=== PATIENT | female | born 1990 | race Hispanic/Latino ===

== ENCOUNTER 2019-04-11 00:03 | Inpatient (IN) | payer SELFPAY ==
[2019-04-11] MEDS ORDERED: NA CHLORIDE 0.9% 1,000 ML ONE (01:01)
[2019-04-11] MEDS ORDERED: LORazepam 2 MG/ML VIAL ONE ×3 (01:04→01:21)
[2019-04-11] MEDS ORDERED: NA CHLORIDE 0.9% 2,000 ML ONE (01:21)
[2019-04-11] MEDS ORDERED: NS KCL 20MEQ 1,000 ML IV ONE (02:09)
[2019-04-11] MEDS ORDERED: MIDAZOLAM HCL 2 MG/2 ML INJ ONE ×2 (02:31→02:50)
[2019-04-11] MEDS ORDERED: NA CHLORIDE 0.9% 500 ML ONE (02:50)
--- NOTE | 2019-04-11 03:47 | ER ---
Nurse's Notes [facility] Name: Ernestina Messina Age: 28 yrs Sex: Female : 1990 Arrival Date: 04/11/2019 Time: 00:10 Bed 3 Private MD: Diagnosis: Altered mental status, unspecified;Overdose on Flexeril Presentation: 04/11 00:23 Presenting complaint: Patient states: her friend dared her to take some pills - small ak1 orange pills. unknown amount, unknown pills at 2200. pt denies drug use, pt denies ETOH. Transition of care: patient was not received from another setting of care. Onset of symptoms was April 11, 2019. Risk Assessment: Do you want to hurt yourself or someone else? Patient reports no desire to harm self or others. Initial Sepsis Screen: Does the patient meet any 2 criteria? No. Patient's initial sepsis screen is negative. Does the patient have a suspected source of infection? No. Patient's initial sepsis screen is negative. Care prior to arrival: None. 00:23 Method Of Arrival: Ambulatory ak1 00:23 Acuity: VINI 2 ak1 CONVOLUTE TUBE WINDER: 00:22 LMP 03/28/2019 ak1 Historical: - Allergies: 00:24 No Known Allergies; ak1 - Home Meds: 00:24 None [Active]; ak1 - PMHx: 00:24 None; ak1 - PSHx: 00:24 None; ak1 - Immunization history:: Adult Immunizations up to date. - Social history:: Smoking status: Patient/guardian denies using tobacco. - Ebola Screening: : No symptoms or risks identified at this time. Screenin:37 Abuse screen: Denies threats or abuse. Nutritional screening: No deficits noted. tl2 Tuberculosis screening: No symptoms or risk factors identified. Fall Risk IV access (20 points). Mental Status- Overestimates/Forgets Limitations (15 pts.). Assessment: 00:30 General: Appears distressed, uncomfortable, Behavior is anxious, drowsy, restless. tl2 Pain: Denies pain. Neuro: Level of Consciousness is awake, listless, Oriented to person, place, time, situation, Speech is slurred. Cardiovascular: Denies chest pain. Respiratory: Airway is patent Respiratory effort is even, unlabored, Respiratory pattern is regular, symmetrical. GI: No signs and/or symptoms were reported involving the gastrointestinal system. : No signs and/or symptoms were reported regarding the genitourinary system. Derm: Skin is pale. 00:45 Reassessment: pt has become increasingly more altered and agitated. PA at bedside, see tl2 MAR for medication administration. General: Appears distressed, Behavior is agitated, combative. Neuro: Level of Consciousness is confused, lethargic, Oriented to person, Speech is slurred. 01:48 Reassessment: Spoke with Darron Vanegas at [place] [facility]. if QT interval tl2 is prolonged, recommend 1-2 grams of mag sulfate. Symptomatic and supportive care watch for QT intervals, risk for torsades. 02:10 Reassessment: PT continues to be agitated, PA at bedside, new orders see MAR. tl2 02:30 Reassessment: Pt rests for short amount of time, then becomes agitated with tachycardia.tl2 04:00 Reassessment: Pt resting quietly, VSS stable with short periods of tachycardia. tl2 05:07 Reassessment: PT stable for transport to ICU. tl2 Overdose: 00:40 Patient took unknown amount of Flexeril. Overdose occurred 2-3 hours ago. tl2 01:30 Kenyon cath inserted, using sterile technique, 16 Fr., by az, balloon inflated, to tl2 gravity drainage, urine specimen collected. returned clear yellow urine. Vital Signs: 00:22 BP 142 / 70; Pulse 139; Resp 16; Temp 98; Pulse Ox 98% on R/A; Weight 61.69 kg (R); ak1 Height 5 ft. 2 in. (157.48 cm) (R); Pain 0/10; 01:37 BP 110 / 70; Pulse 106; Resp 21; Pulse Ox 100% on 2 lpm NC; tl2 01:58 BP 119 / 75; Pulse 111; Resp 21; Pulse Ox 98% on 2 lpm NC; tl2 02:43 BP 94 / 66; Pulse 146; Resp 30; Pulse Ox 100% on 2 lpm NC; tl2 02:51 BP 103 / 75; Pulse 113; Resp 21; Pulse Ox 99% on 2 lpm NC; tl2 03:58 BP 101 / 68; Pulse 122; Resp 20; Pulse Ox 100% on 2 lpm NC; tl2 00:22 Body Mass Index 24.87 (61.69 kg, 157.48 cm) ak1 ED Course: 00:10 Patient arrived in ED. ds1 00:22 Ortega Palencia PA is PHCP. jr8 00:22 Kalyan Carranza MD is Attending Physician. jr8 00:22 Arm band placed on Patient placed in an exam room, on a stretcher, Patient notified of ak1 wait time. 00:24 Triage completed. ak1 00:39 Jennifer Anna RN is Primary Nurse. tl2 00:45 Inserted saline lock: 20 gauge in left antecubital area, using aseptic technique. Blood tl2 collected. 01:20 Kenyon cath inserted, using sterile technique, 16 Fr., by az, balloon inflated, to tl2 gravity drainage, urine specimen collected. returned clear yellow urine. 01:37 Patient has correct armband on for positive identification. Placed in gown. Bed in low tl2 position. Call light in reach. Side rails up X2. sitter at bedside. 02:38 Dae Bird MD is Hospitalizing Provider. jr8 05:10 No provider procedures requiring assistance completed. Patient admitted, IV remains in tl2 place. Restraints: 02:00 Violent/Self Destructive Restraint: Order: obtained. Initiated April 11, 2019 at 02:00 tl2 Staff present during the Initiation of Restraint: DICK Juares, Jennifer Anna, BUFFY, and Mark, tech. Observed actions/behavior: destructive, confusion/disorientation, difficulty remembering or follow instructions, impaired decision making, repeated attempts to get up from bed/chair without assistance. unable to follow instructions, rptd attempts to remove/tamper lines/tubes/IV/med devices \T\ wnd dressing, Less restrictive alternatives attempted: placed near Nurse station, trained sitter in room, Clinical justification for use: Violent/self destructing behavior impacts therapeutic environment. Poses a serious danger to physical safety of self \T\ others. 02:15 Violent/Self Destructive Restraint: Monitoring: Mental status: agitated/restless, tl2 confused. Cognition: unable to follow commands, Circulation: Within defined parameters (based on Cardiovascular assessment). Skin integrity: Within defined parameters (based on Integumentary assessment). 02:15 Violent/Self Destructive Restraint: Restraint status: Soft wrist restraint (Right) tl2 Continued. Soft wrist restraint (Left) Continued. Soft ankle restraint (Right) Continued. Soft ankle restraint (Left) Continued. 02:30 Violent/Self Destructive Restraint: Monitoring: Mental status: agitated/restless, tl2 confused. Cognition: unable to follow commands, Circulation: Within defined parameters (based on Cardiovascular assessment). Skin integrity: Within defined parameters (based on Integumentary assessment). 02:30 Violent/Self Destructive Restraint: Restraint status: Soft wrist restraint (Right) tl2 Continued. Soft wrist restraint (Left) Continued. Soft ankle restraint (Right) Continued. Soft ankle restraint (Left) Continued. 02:45 Violent/Self Destructive Restraint: Monitoring: Mental status: agitated/restless, tl2 confused. Cognition: unable to follow commands, Circulation: Within defined parameters (based on Cardiovascular assessment). Skin integrity: Within defined parameters (based on Integumentary assessment). 02:45 Violent/Self Destructive Restraint: Restraint status: Soft wrist restraint (Right) tl2 Continued. Soft wrist restraint (Left) Continued. Soft ankle restraint (Right) Continued. Soft ankle restraint (Left) Continued. 02:59 Violent/Self Destructive Restraint: Monitoring: Mental status: agitated/restless, tl2 confused. Cognition: unable to follow commands, Circulation: Within defined parameters (based on Cardiovascular assessment). Skin integrity: Within defined parameters (based on Integumentary assessment) No injuries due to Restraints noted. Range of Motion: patient asleep. Hydration/Food: patient asleep. Elimination/Hygiene: with urinary catheter. 03:00 Violent/Self Destructive Restraint: Restraint status: Soft wrist restraint (Right) tl2 Continued. Soft wrist restraint (Left) Continued. Soft ankle restraint (Right) Continued. Soft ankle restraint (Left) Continued. 03:02 Violent/Self Destructive Restraint: Face to Face Evaluatn: Continue Restraint. tl2 Notified of Evaluation result: Ortega JENNINGS. 03:15 Violent/Self Destructive Restraint: Monitoring: Mental status: agitated/restless, tl2 confused. Cognition: unable to follow commands, Circulation: Within defined parameters (based on Cardiovascular assessment). Skin integrity: Within defined parameters (based on Integumentary assessment) No injuries due to Restraints noted. 03:15 Violent/Self Destructive Restraint: Restraint status: Soft wrist restraint (Right) tl2 Continued. Soft wrist restraint (Left) Continued. Soft ankle restraint (Right) Continued. Soft ankle restraint (Left) Continued. 03:30 Violent/Self Destructive Restraint: Monitoring: Mental status: agitated/restless, tl2 confused. Cognition: unable to follow commands, Circulation: Within defined parameters (based on Cardiovascular assessment). Skin integrity: Within defined parameters (based on Integumentary assessment) No injuries due to Restraints noted. 03:30 Violent/Self Destructive Restraint: Restraint status: Soft wrist restraint (Right) tl2 Continued. Soft wrist restraint (Left) Continued. Soft ankle restraint (Right) Continued. Soft ankle restraint (Left) Continued. 03:45 Violent/Self Destructive Restraint: Monitoring: Mental status: agitated/restless, tl2 confused. Cognition: unable to follow commands, Circulation: Within defined parameters (based on Cardiovascular assessment). Skin integrity: Within defined parameters (based on Integumentary assessment) No injuries due to Restraints noted. 03:45 Violent/Self Destructive Restraint: Restraint status: Soft wrist restraint (Right) tl2 Continued. Soft wrist restraint (Left) Continued. Soft ankle restraint (Right) Continued. Soft ankle restraint (Left) Continued. 04:01 Violent/Self Destructive Restraint: Monitoring: Mental status: agitated/restless, tl2 confused. Cognition: unable to follow commands, Circulation: Within defined parameters (based on Cardiovascular assessment). Skin integrity: Within defined parameters (based on Integumentary assessment) No injuries due to Restraints noted. Range of Motion: patient asleep. Hydration/Food: patient asleep. Elimination/Hygiene: with urinary catheter, Restraint status: Soft wrist restraint (Right) Continued. Soft wrist restraint (Left) Continued. Soft ankle restraint (Right) Continued. Soft ankle restraint (Left) Continued. 04:15 Violent/Self Destructive Restraint: Monitoring: Mental status: agitated/restless, tl2 confused. Cognition: unable to follow commands, Circulation: Within defined parameters (based on Cardiovascular assessment). Skin integrity: Within defined parameters (based on Integumentary assessment) No injuries due to Restraints noted. Restraint status: Soft wrist restraint (Right) Continued. Soft wrist restraint (Left) Continued. Soft ankle restraint (Right) Continued. Soft ankle restraint (Left) Continued. 04:30 Violent/Self Destructive Restraint: Monitoring: Mental status: patient asleep, tl2 Cognition: unable to follow commands, Circulation: Within defined parameters (based on Cardiovascular assessment). Skin integrity: Within defined parameters (based on Integumentary assessment) No injuries due to Restraints noted. Restraint status: Soft wrist restraint (Right) Discontinued. Soft wrist restraint (Left) Discontinued. Soft ankle restraint (Right) Discontinued. Soft ankle restraint (Left) Discontinued. Readiness for Discontinue: Release criteria met. No longer exhibiting violent or self destructive behavior. Alt interventions effective. Restraint discontinuation: Discontinued at April 11, 2019 at 04:30 Effective alternative interventions: Restraints not ordered for admission. Administered Medications: 00:39 Drug: NS 0.9% 1000 ml Route: IV; Rate: 1000 ml; Site: left antecubital; tl2 01:56 Follow up: IV Status: Completed infusion; IV Intake: 1000ml bb 00:52 Drug: Ativan 1 mg Route: IVP; Site: left antecubital; tl2 01:00 Follow up: Response: No adverse reaction; No change in condition tl2 00:54 CANCELLED (Physician Discretion): Sodium Bicarbonate 0.5 amp IVP once; (50 mL); equals jr8 50 mEq 00:54 CANCELLED (Physician Discretion): Ativan 1 mg IVP once jr8 01:00 Drug: Ativan 1 mg Route: IVP; Site: left antecubital; tl2 01:05 Follow up: Response: No adverse reaction; Anxiety unchanged tl2 01:02 Drug: Sodium Bicarbonate 0.5 amp Route: IVP; Site: left antecubital; tl2 02:00 Follow up: Response: No adverse reaction tl2 01:10 Drug: Ativan 2 mg Route: IVP; Site: left antecubital; tl2 01:15 Follow up: Response: No adverse reaction; Anxiety unchanged tl2 01:15 Drug: Ativan 2 mg Route: IVP; Site: left antecubital; tl2 01:30 Follow up: Response: No adverse reaction; Anxiety decreased tl2 01:15 Drug: NS 0.9% 1000 ml Route: IV; Rate: 1 bolus; Site: left antecubital; tl2 01:56 Follow up: IV Status: Completed infusion; IV Intake: 1000ml bb 02:00 Follow up: IV Status: Completed infusion; IV Intake: 1000ml tl2 01:56 Drug: NS 0.9% with KCl 20 mEq/L 1000 ml Route: IV; Rate: 500 ml/hr; Site: left bb antecubital; 04:00 Follow up: IV Status: Completed infusion; IV Intake: 1000ml tl2 02:20 Drug: Versed 2 mg Route: IVP; Site: left antecubital; tl2 02:50 Follow up: Response: No adverse reaction; Anxiety unchanged tl2 02:41 Drug: NS 0.9% 500 ml Route: IV; Rate: bolus; Site: left antecubital; tl2 03:30 Follow up: IV Status: Completed infusion; IV Intake: 500ml tl2 02:51 Drug: Versed 2 mg Route: IVP; Site: left antecubital; tl2 03:30 Follow up: Response: No adverse reaction; Anxiety decreased tl2 Intake: 01:56 IV: 1000ml; Total: 1000ml. bb 01:56 IV: 1000ml; Total: 2000ml. bb 02:00 IV: 1000ml; Total: 3000ml. tl2 03:30 IV: 500ml; Total: 3500ml. tl2 04:00 IV: 1000ml; Total: 4500ml. tl2 Outcome: 02:39 Decision to Hospitalize by Provider. jr8 05:10 Admitted to ICU accompanied by nurse, accompanied by tech, via stretcher, room 7, with tl2 oxygen, on monitor, with chart, Report called to BUFFY Irwin 05:10 Condition: stable 05:10 Discharge instructions given to patient. 05:14 Patient left the ED. tl2 Signatures: Amy Cullen1 Tami Mejia RN RN bb Ortega Palencia PA PA jr8 Nubia Melo RN RN ak1 Jennifer Anna RN RN tl2 Corrections: (The following items were deleted from the chart) 01:51 01:48 Reassessment: if QT interval is prolonged, recommend 1-2 grams of mag sulfate. tl2 Symptomatic and supportive care watch for QT intervals, risk for torsades. tl2
--- NOTE | 2019-04-11 03:47 | EDPHYS ---
Physician Documentation [facility] Name: Ernestina Messina Age: 28 yrs Sex: Female : 1990 Arrival Date: 04/11/2019 Time: 00:10 Bed 3 Private MD: ED Physician Kalyan Carranza HPI: 04/11 00:39 This 28 yrs old Female presents to ER via Ambulatory with complaints of jr8 Overdose. 00:39 The patient presents to the emergency department after a known overdose, that was jr8 intentional. Context: Method: the patient has a confirmed or suspected ingestion, Flexeril , Time: 3 hour(s) ago, Extent: Associated signs and symptoms: Pertinent positives: decreased level of consciousness. Severity of symptoms: At their worst the symptoms were moderate in the emergency department the symptoms are unchanged. The patient has not experienced similar symptoms in the past. The patient has not recently seen a physician. Patient stated that she was dared to take a bunch of her medicine because she was having trouble sleeping. Stated that her friend was calling her a "pussy". Ended up taking a hand full of her muscle relaxant which was found to be Flexeril after she described and identified pill. Patient tachycardic and sleepy upon arrival . 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 - Social history:: Smoking status: Patient/guardian denies using tobacco. - Ebola Screening: : No symptoms or risks identified at this time. ROS: 00:39 Eyes: Negative for injury, pain, redness, and discharge, ENT: Negative for injury, jr8 pain, and discharge, Neck: Negative for injury, pain, and swelling, Cardiovascular: Negative for chest pain, palpitations, and edema, Respiratory: Negative for shortness of breath, cough, wheezing, and pleuritic chest pain, Abdomen/GI: Negative for abdominal pain, nausea, vomiting, diarrhea, and constipation, Back: Negative for injury and pain, MS/Extremity: Negative for injury and deformity, Skin: Negative for injury, rash, and discoloration, Neuro: Negative for headache, weakness, numbness, tingling, and seizure. 00:39 Constitutional: Positive for malaise. Exam: 00:39 Eyes: Pupils equal round and reactive to light, extra-ocular motions intact. Lids and jr8 lashes normal. Conjunctiva and sclera are non-icteric and not injected. Cornea within normal limits. Periorbital areas with no swelling, redness, or edema. ENT: Nares patent. No nasal discharge, no septal abnormalities noted. Tympanic membranes are normal and external auditory canals are clear. Oropharynx with no redness, swelling, or masses, exudates, or evidence of obstruction, uvula midline. Mucous membranes moist. Neck: Trachea midline, no thyromegaly or masses palpated, and no cervical lymphadenopathy. Supple, full range of motion without nuchal rigidity, or vertebral point tenderness. No Meningismus. Respiratory: Lungs have equal breath sounds bilaterally, clear to auscultation and percussion. No rales, rhonchi or wheezes noted. No increased work of breathing, no retractions or nasal flaring. Abdomen/GI: Soft, non-tender, with normal bowel sounds. No distension or tympany. No guarding or rebound. No evidence of tenderness throughout. Back: No spinal tenderness. No costovertebral tenderness. Full range of motion. Skin: Warm, dry with normal turgor. Normal color with no rashes, no lesions, and no evidence of cellulitis. MS/ Extremity: Pulses equal, no cyanosis. Neurovascular intact. Full, normal range of motion. Neuro: Awake and alert, GCS 15, oriented to person, place, time, and situation. Cranial nerves II-XII grossly intact. Motor strength 5/5 in all extremities. Sensory grossly intact. Cerebellar exam normal. Normal gait. 00:39 Constitutional: The patient appears alert, awake, non-toxic, sleepy in appearance 00:39 Cardiovascular: Rate: tachycardic, Rhythm: regular, Pulses: Pulses are 2+ in right radial artery and left radial artery. Heart sounds: normal, normal S1and S2, no S3 or S4, no murmur, no rub, no gallop, Edema: is not appreciated, JVD: is not appreciated. Vital Signs: 00:22 BP 142 / 70; Pulse 139; Resp 16; Temp 98; Pulse Ox 98% on R/A; Weight 61.69 kg (R); ak1 Height 5 ft. 2 in. (157.48 cm) (R); Pain 0/10; 01:37 BP 110 / 70; Pulse 106; Resp 21; Pulse Ox 100% on 2 lpm NC; tl2 01:58 BP 119 / 75; Pulse 111; Resp 21; Pulse Ox 98% on 2 lpm NC; tl2 02:43 BP 94 / 66; Pulse 146; Resp 30; Pulse Ox 100% on 2 lpm NC; tl2 02:51 BP 103 / 75; Pulse 113; Resp 21; Pulse Ox 99% on 2 lpm NC; tl2 03:58 BP 101 / 68; Pulse 122; Resp 20; Pulse Ox 100% on 2 lpm NC; tl2 00:22 Body Mass Index 24.87 (61.69 kg, 157.48 cm) ak1 MDM: 00:34 Patient medically screened. jr8 01:21 ED course: Patient had runs of SVT. Bicarb given as antiarrhythmic as this is treated jr8 potentially as TCA overdose due to type of medicine. Patient has also become acute confused and has required multiple rounds of ativan . 02:37 Data reviewed: vital signs, nurses notes, lab test result(s), EKG. Data interpreted: jr8 Pulse oximetry: on room air is 98 %. Interpretation: normal. Counseling: I had a detailed discussion with the patient and/or guardian regarding: the historical points, exam findings, and any diagnostic results supporting the discharge/admit diagnosis, lab results, the need for further work-up and treatment in the hospital. Physician consultation: Dae Bird MD was called at 02:37, was contacted at 02:37, regarding admission, to the ICU, and will see patient in ED. 04/11 00:34 Order name: Acetaminophen 04/11:34 Order name: Basic Metabolic Panel 04/11: Order name: CBC with Diff 04/11: Order name: ETOH Level 04/11:34 Order name: Hepatic Function 04/11:34 Order name: PT-INR 04/11:34 Order name: Ptt, Activated 04/11: Order name: Salicylate jr8 07/10 00:34 Order name: Urine Drug Screen 04/11 00:39 Order name: Magnesium 04/11 01:40 Order name: Urine Dipstick--Ancillary (enter results) 04/11 01:40 Order name: Urine --Ancillary (enter results) 04/11 03:37 Order name: Acetaminophen Level EDPR 04/11 03:37 Order name: Basic Metabolic Panel [facility] 04/11 00:34 Order name: EKG; Complete Time: 03:38 04/11 00:34 Order name: EKG - Nurse/Tech; Complete Time: 00:39 04/11 00:34 Order name: IV Saline Lock; Complete Time: 00:39 04/11 00:34 Order name: Labs collected and sent; Complete Time: 00:39 04/11 00:34 Order name: Urine Dipstick-Ancillary (obtain specimen); Complete Time: 01:36 04/11 00:34 Order name: Urine Test (obtain specimen); Complete Time: 01:36 [facility] 04/11 01:36 Order name: [place]; Complete Time: 01:36 2 04/11 02:52 Order name: Restraint:Violent/Self Destructive (Adult:18yo or >); Complete Time: 02:52 tl2 Administered Medications: 00:39 Drug: NS 0.9% 1000 ml Route: IV; Rate: 1000 ml; Site: left antecubital; tl2 01:56 Follow up: IV Status: Completed infusion; IV Intake: 1000ml bb 00:52 Drug: Ativan 1 mg Route: IVP; Site: left antecubital; tl2 01:00 Follow up: Response: No adverse reaction; No change in condition tl2 00:54 CANCELLED (Physician Discretion): Sodium Bicarbonate 0.5 amp IVP once; (50 mL); equals jr8 50 mEq 00:54 CANCELLED (Physician Discretion): Ativan 1 mg IVP once 01:00 Drug: Ativan 1 mg Route: IVP; Site: left antecubital; tl2 01:05 Follow up: Response: No adverse reaction; Anxiety unchanged tl2 01:02 Drug: Sodium Bicarbonate 0.5 amp Route: IVP; Site: left antecubital; tl2 02:00 Follow up: Response: No adverse reaction tl2 01:10 Drug: Ativan 2 mg Route: IVP; Site: left antecubital; tl2 01:15 Follow up: Response: No adverse reaction; Anxiety unchanged tl2 01:15 Drug: Ativan 2 mg Route: IVP; Site: left antecubital; tl2 01:30 Follow up: Response: No adverse reaction; Anxiety decreased tl2 01:15 Drug: NS 0.9% 1000 ml Route: IV; Rate: 1 bolus; Site: left antecubital; tl2 01:56 Follow up: IV Status: Completed infusion; IV Intake: 1000ml bb 02:00 Follow up: IV Status: Completed infusion; IV Intake: 1000ml tl2 01:56 Drug: NS 0.9% with KCl 20 mEq/L 1000 ml Route: IV; Rate: 500 ml/hr; Site: left bb antecubital; 04:00 Follow up: IV Status: Completed infusion; IV Intake: 1000ml tl2 02:20 Drug: Versed 2 mg Route: IVP; Site: left antecubital; tl2 02:50 Follow up: Response: No adverse reaction; Anxiety unchanged tl2 02:41 Drug: NS 0.9% 500 ml Route: IV; Rate: bolus; Site: left antecubital; tl2 03:30 Follow up: IV Status: Completed infusion; IV Intake: 500ml tl2 02:51 Drug: Versed 2 mg Route: IVP; Site: left antecubital; tl2 03:30 Follow up: Response: No adverse reaction; Anxiety decreased tl2 Disposition: 06:31 Co-signature as Attending Physician, Kalyan Carranza MD. rn Disposition: 04/11/19 02:39 Hospitalization ordered by Dae Bird for Observation. Preliminary diagnosis are Altered mental status, unspecified, Overdose on Flexeril . - Bed requested for Intensive Care Unit. - Status is Observation. tl2 - Condition is Fair. - Problem is new. - Symptoms are unchanged. UTI on Admission? No Signatures: Dispatcher [employer] Carleen Underwood RN Tami Hayes RN RN bb Nieto, Roman, MD MD rn Roszak, Josh, PA PA jr8 Nubia Melo RN RN ak1 Jennifer Anna RN RN tl2 Corrections: (The following items were deleted from the chart) 00:54 00:53 Sodium Bicarbonate 0.5 amp IVP once; (50 mL); equals 50 mEq ordered. tl2 jr8 00:54 00:53 Ativan 1 mg IVP once ordered. tl2 jr8 02:45 02:39 Hospitalization Ordered by Dae Bird MD for Observation. Preliminary dw diagnosis is Altered mental status, unspecified; Overdose on Flexeril . Bed requested for Telemetry/MedSurg (observation). Status is Observation. Condition is Fair. Problem is new. Symptoms are unchanged. UTI on Admission? No. jr8 05:14 02:45 04/11/2019 02:39 Hospitalization Ordered by Dae Bird MD for Observation. tl2 Preliminary diagnosis is Altered mental status, unspecified; Overdose on Flexeril . Bed requested for Intensive Care Unit. Status is Observation. Condition is Fair. Problem is new. Symptoms are unchanged. UTI on Admission? No. dw
[2019-04-11 04:13] LABS: Urine Blood TRACE (NEG); Urine Glucose NEGATIVE (NEG); Urine Protein NEGATIVE (NEG)
[2019-04-11 04:31] LABS: Absolute Lymphocytes (CBC) 2.1 K/uL (0.7-4.9); Basophils % 0.5 % (0-1.3); Eosinophils % 0.2 % (0-4.4); Lymphocytes % 27.7 % (15.3-44.8); Monocytes % 7.3 % (3.3-12.3); RBC Red Blood Cell Count 4.66 M/uL (3.86-4.86)
[2019-04-11 04:32] LABS: Protime INR 1.12
[2019-04-11 04:33] LABS: Barbiturates NEGATIVE (NEGATIVE); Benzodiazepines NEGATIVE (NEGATIVE); Cocaine NEGATIVE (NEGATIVE); METHAMPHETAM NEGATIVE (NEGATIVE); Methadone NEGATIVE (NEGATIVE); Opiates NEGATIVE (NEGATIVE); Phencyclidine NEGATIVE (NEGATIVE); THC Cannibis NEGATIVE (NEGATIVE)
[2019-04-11 04:34] LABS: ALT/SGPT 28 U/L (12-78); AST/SGOT 17 U/L (15-37); Alkaline Phosphatase 66 U/L (45-117); Bilirubin Total 0.6 mg/dL (0.2-1.0); Protein, Total 7.5 g/dL (6.4-8.2)
[2019-04-11] MEDS ORDERED: ONDANSETRON 4 MG/2 ML VIAL IV PRN (04:36)
--- NOTE | 2019-04-11 04:36 | P.HP ---
Certification for Inpatient Patient admitted to: Inpatient With expected LOS: >2 Midnights Practitioner: I am a practitioner with admitting privileges, knowledge of patient current condition, hospital course, and medical plan of care. Services: Services provided to patient in accordance with Admission requirements found in Title 42 Section 412.3 of the Code of Federal Regulations Patient History Date of Service: 04/11/19 Reason for admission: drug overdose History of Present Illness: Ms Messina is a 28 years old woman with who was brought by her friend after take and handful of an "orange" pill that she got prescribed for muscle pain. She states that was not suicidal. At arrival, she was alert and able to follow commands. However, during her stay in ER, gradually she become tachycardic and agitated. She was treated with lorazepam and verced. At my encounter, the patient was sedated, unable to provide any history. Allergies No Known Allergies Allergy (Unverified 04/11/19 03:56) Home medications list reviewed: Yes - Past Medical/Surgical History Past Medical History: Reviewed- Non-Contributory Past Surgical History: Reviewed- Non-Contributory - Family History Family History: Reviewed- Non-Contributory - Social History Place of Residence: Home Review of Systems is unable to be obtained Physical Examination - Physical Exam General: Mild distress, Unresponsive HEENT: Atraumatic, PERRLA, Other (dry mucous membr.), Sclerae nonicteric Neck: Supple, 2+ carotid pulse no bruit, No LAD, Without JVD or thyroid abnormality Respiratory: Clear to auscultation bilaterally, Normal air movement Cardiovascular: Regular rate/rhythm, Normal S1 S2 Gastrointestinal: Normal bowel sounds, No tenderness Musculoskeletal: No tenderness Integumentary: No rashes Neurological: Normal strength at 5/5 x4 extr, Normal tone, Sensation intact Lymphatics: No axilla or inguinal lymphadenopathy Assessment and Plan - Problems (Diagnosis) (1) Drug overdose Current Visit: Yes Status: Acute Qualifiers: Encounter type: initial encounter Injury intent: intentional self-harm Qualified Code(s): T50.902A - Poisoning by unspecified drugs, medicaments and biological substances, intentional self-harm, initial encounter - Plan Will admit the patient to ICU for close monitoring. Lab work is still pending, since system was down and just came back to normal. She will need mental health evaluation when she is clinically stable, eventually will need long term as well. - Advance Directives Does patient have a Living Will: No Does patient have a Durable POA for Healthcare: No - Code Status/Comfort Care Code Status Assessed: Yes Code Status: Full Code
[2019-04-11 04:38] LABS: Albumin 4.1 g/dL (3.4-5.0); BUN Blood Urea Nitrogen 7 mg/dL (7-18); Bicarbonate 25 mmol/L (21-32); Bilirubin Direct 0.2 mg/dL (0-0.2); Glucose Level 91 mg/dL (74-106); Potassium 3.1 mmol/L (3.5-5.1); Sodium Level 141 mmol/L (136-145)
[2019-04-11] MEDS ORDERED: NA CHLORIDE 0.9% 1,000 ML IV SCH (05:00)
[2019-04-11] MEDS ORDERED: NS KCL 20MEQ 20 MEQ/1,000 ML BAG IV SCH (08:00)
--- NOTE | 2019-04-11 09:54 | EKG ---
Test Date: 2019-04-11 Test Time: 08:27:46 Director Of Land Acquisition: FRANCISCA MEASUREMENT RESULTS: Intervals: Rate: 93 VA: 146 QRSD: 76 QT: 346 QTc: 430 [place]: P: 80 VA: 146 QRS: 74 T: 43 INTERPRETIVE STATEMENTS: Normal sinus rhythm Normal ECG Compared to ECG 04/11/2019 00:46:34 Sinus tachycardia no longer present ST (T wave) deviation no longer present Possible ischemia no longer present Electronically Signed On 04-11-19 09:52:59 CDT by Willy Flores
--- NOTE | 2019-04-11 09:55 | EKG ---
Test Date: 2019-04-11 Test Time: 00:46:34 Epic Analyst: KASHMIR MEASUREMENT RESULTS: Intervals: Rate: 137 CA: 130 QRSD: 74 QT: 274 QTc: 413 [place]: P: 65 CA: 130 QRS: 56 T: 2 INTERPRETIVE STATEMENTS: Sinus tachycardia Low voltage QRS ST & T wave abnormality, consider inferolateral ischemia Abnormal ECG Compared to ECG 04/02/2013 03:45:23 Low QRS voltage now present ST (T wave) deviation now present Possible ischemia now present Sinus rhythm no longer present Electronically Signed On 04-11-19 09:54:25 CDT by Willy Flores
--- NOTE | 2019-04-11 13:54 | P.PN ---
Subjective Date of Service: 04/11/19 Primary Care Provider: None Chief Complaint: drug overdose Subjective: Other (I was able to discuss with the patient the events that led her to be hospitalized. Initially there was some mixed stories from the patient and her significant other/common-law all . Initially the patient said that she intentionally took multiple pills of Flexeril on a dare with her friends playing a game. She described the gain with dice. On the dices there was a symbol of . The significant other reported that there were no friends that came over and she was not playing a game. He reported that they had a disagreement. She then wrote on a piece the paper eluting to that she wanted to commit suicide. After further discussion with house significant other present, she admitted that she took the pills as a suicide attempt.) Physical Examination - Vital Signs Temperature: 97 F Blood Pressure: 114/87 Pulse: 104 Respirations: 18 Pulse Ox (%): 99 - Physical Exam General: Alert, In no apparent distress, Oriented x3, Cooperative, Other ( Patient appears depressed) HEENT: Atraumatic Neck: Supple Respiratory: Clear to auscultation bilaterally, Normal air movement Cardiovascular: Normal pulses, Regular rate/rhythm Gastrointestinal: Normal bowel sounds, Soft and benign, Non-distended, No masses , No rebound, No guarding Musculoskeletal: No erythema, No tenderness, No warmth Integumentary: No tenderness/swelling, No erythema, No warmth, No cyanosis Neurological: Normal speech, Normal strength at 5/5 x4 extr, Normal tone, Normal affect - Studies Laboratory Data (last 24 hrs) 04/11/19 00:35: PT 13.2 H, INR 1.12, APTT 32.5 04/11/19 00:35: WBC 7.7, Hgb 12.9, Hct 38.0, Plt Count 255 04/11/19 00:35: Sodium 141, Potassium 3.1 L, BUN 7, Creatinine 0.60, Glucose 91 , Magnesium 2.0, Total Bilirubin 0.6, AST 17, ALT 28, Alkaline Phosphatase 66 Medications List Reviewed: Yes Assessment & Plan Discharge Plan: Psychiatry Plan to discharge in: 24 Hours Physician Review Additional Text: Impression: Suicide Attempt with Flexeril Overdose with suspected underlying Depression Plan: I was able to discuss with the patient the events that led her to be hospitalized. Initially there was some mixed stories from the patient and her significant other/common-law all . Initially the patient said that she intentionally took multiple pills of Flexeril on a dare with her friends playing a game. She described the gain with dice. On the dices there was a symbol of . The significant other reported that there were no friends that came over and she was not playing a game. He reported that they had a disagreement. She then wrote on a piece the paper eluting to that she wanted to commit suicide. After further discussion with significant other present, she admitted that she took the pills as a suicide attempt. Patient understands what she did was wrong. Patient willing to go to psychiatric facility to further evaluate and treat. Patient alert and oriented. Patient appears clinically stable for discharge to psychiatric facility. Will verify with poison control addressing Flexeril overdose. Will have [facility] evaluation to help with transfer to psychiatric facility. Time Spent Managing Pts Care (In Minutes): 55
[2019-04-11 15:56] LABS: BUN Blood Urea Nitrogen 3 mg/dL (7-18); Bicarbonate 26 mmol/L (21-32); Glucose Level 87 mg/dL (74-106); Sodium Level 143 mmol/L (136-145)
[2019-04-12 05:21] LABS: Absolute Lymphocytes (CBC) 1.8 K/uL (0.7-4.9); Basophils % 0.7 % (0-1.3); Eosinophils % 0.7 % (0-4.4); Hematocrit 37.2 % (36.0-45.0); Lymphocytes % 30.6 % (15.3-44.8); MPV 9.4 fL (7.6-11.3); Monocytes % 7.4 % (3.3-12.3); RBC Red Blood Cell Count 4.53 M/uL (3.86-4.86)
[2019-04-12 05:35] LABS: BUN Blood Urea Nitrogen 3 mg/dL (7-18); Bicarbonate 27 mmol/L (21-32); Glucose Level 79 mg/dL (74-106); Potassium 3.6 mmol/L (3.5-5.1); Sodium Level 142 mmol/L (136-145)
[2019-04-12] MEDS ORDERED: POTASSIUM CL SA 10 MEQ TAB PO ONE (09:00)
--- NOTE | 2019-04-12 09:52 | P.PN ---
Subjective Date of Service: 04/12/19 Primary Care Provider: None Chief Complaint: drug overdose Subjective: Improving, Doing well Physical Examination - Vital Signs Temperature: 98 F Blood Pressure: 107/71 Pulse: 105 Respirations: 18 Pulse Ox (%): 99 - Physical Exam General: Alert, In no apparent distress, Oriented x3, Cooperative HEENT: Atraumatic Neck: Supple Respiratory: Clear to auscultation bilaterally, Normal air movement Cardiovascular: Normal pulses, Regular rate/rhythm Gastrointestinal: Normal bowel sounds, Soft and benign, Non-distended, No tenderness, No masses, No rebound, No guarding Musculoskeletal: No erythema, No tenderness, No warmth Integumentary: No tenderness/swelling, No erythema, No warmth, No cyanosis Neurological: Normal speech, Normal strength at 5/5 x4 extr, Normal tone, Abnormal affect (Patient appears depressed) - Studies Medications List Reviewed: Yes Assessment & Plan Discharge Plan: Psychiatry Plan to discharge in: 24 Hours Physician Review Additional Text: Impression: Suicide Attempt with Flexeril Overdose with suspected underlying Depression Plan: Plan of care addressed with patient. Prison in place. MR evaluation done yesterday. They agree with plan of care to transfer patient to inpatient psychiatric facility to continue further evaluation and treatment. Patient still high risk for suicide attempt, therefore inpatient evaluation/treatment by psychiatry is required. Patient not happy about going to inpatient psychiatric facility but agreeable. Await acceptance for transfer. Patient medically stable at this time for transfer. Before 48 hr snf has run out , mental health officer will need to be called for reassessment for committal. Plan of care addressed with nursing. I will turn the service over to Dr. Haley tomorrow. I will go over plan of care with her. Time Spent Managing Pts Care (In Minutes): 55
[2019-04-13 05:49] LABS: BUN Blood Urea Nitrogen 5 mg/dL (7-18); Bicarbonate 28 mmol/L (21-32); Glucose Level 96 mg/dL (74-106); Potassium 3.9 mmol/L (3.5-5.1); Sodium Level 141 mmol/L (136-145)
[2019-04-13] MEDS ORDERED: POTASSIUM CL SA 10 MEQ TAB PO ONE (09:00)
--- NOTE | 2019-04-13 10:58 | P.DS ---
Admission Date: 04/11/19 Discharge Date: 04/13/19 Primary Care Provider: None Reason for Admission: drug overdose - Problems (1) Drug overdose Current Visit: Yes Status: Acute Qualifiers: Encounter type: initial encounter Injury intent: intentional self-harm Qualified Code(s): T50.902A - Poisoning by unspecified drugs, medicaments and biological substances, intentional self-harm, initial encounter Brief History of Present Illness: Ms Messina is a 28 years old woman with who was brought by her friend after take and handful of an "orange" pill that she got prescribed for muscle pain. She states that was not suicidal. At arrival, she was alert and able to follow commands. However, during her stay in ER, gradually she become tachycardic and agitated. She was treated with lorazepam and verced. At my encounter, the patient was sedated, unable to provide any history. Hospital Course: Overall during the hospital stay patient remained stable Patient was initially admitted to the hospital for drug overdose was thought to be muscle relaxers. Patient remained stable while here in the hospital poison control was called. Patient's CBC and BMP was monitored closely here in the hospital. Patient had no adverse effect. At that time patient was medically cleared. MR was called. [facility] recommended inpatient psych. Patient was awaiting bed at [facility]. Patient did not receive bed for 48 hr and does deputy was called. The PT was able to do the revaluation and took the patient to [facility] to be admitted to the hospital at that time. Patient initially in the ER was not able to be evaluated. On subsequent days did appear to be suicidal according to the [facility] notes. Vital Signs/Physical Exam: Temp Pulse Resp BP Pulse Ox 97 F 75 24 H 92/64 99 04/13/19 04:00 04/13/19 10:00 04/13/19 10:00 04/13/19 10:00 04/13/19 10:00 General: Alert, In no apparent distress HEENT: Atraumatic, PERRLA, EOMI Neck: Supple, JVD not distended Respiratory: Clear to auscultation bilaterally, Normal air movement Cardiovascular: Regular rate/rhythm, Normal S1 S2 Gastrointestinal: Normal bowel sounds, No tenderness Musculoskeletal: No tenderness Integumentary: No rashes Neurological: Normal speech, Normal tone, Normal affect Lymphatics: No axilla or inguinal lymphadenopathy Laboratory Data at Discharge: WBC 6.0 K/uL (4.3-10.9) D 04/12/19 04:54 Hgb 12.7 g/dL (12.0-15.0) 04/12/19 04:54 Hct 37.2 % (36.0-45.0) 04/12/19 04:54 Plt Count 242 K/uL (152-406) 04/12/19 04:54 PT 13.2 SECONDS (9.5-12.5) H 04/11/19 00:35 INR 1.12 04/11/19 00:35 APTT 32.5 SECONDS (24.3-36.9) 04/11/19 00:35 Sodium 141 mmol/L (136-145) 04/13/19 04:53 Potassium 3.9 mmol/L (3.5-5.1) 04/13/19 04:53 BUN 5 mg/dL (7-18) L 04/13/19 04:53 Creatinine 0.69 mg/dL (0.55-1.3) 04/13/19 04:53 Glucose 96 mg/dL (74-106) 04/13/19 04:53 Magnesium 2.0 mg/dL (1.8-2.4) 04/12/19 04:54 Total Bilirubin 0.6 mg/dL (0.2-1.0) 04/11/19 00:35 AST 17 U/L (15-37) 04/11/19 00:35 ALT 28 U/L (12-78) 04/11/19 00:35 Alkaline Phosphatase 66 U/L (45-117) 04/11/19 00:35 Home Medications: NK [No Home Meds] 04/11/19
== END 2019-04-13 16:26 | disposition left against medical advice (07) | DRG 918 ==
LOC: ER 00:03 → 3RD-ICU 04:18
PROVIDERS: ADMIT Internal Medicine; ATTEND Family Medicine
DX: T48.1X2A Poisoning by skeletal muscle relaxants [neuromuscular blocking agents], intentional self-harm, initial encounter (principal); F32.9 Major depressive disorder, single episode, unspecified
CPT/HCPCS: 36415; 51702; 80048; 80076; 80307; 80320; 80329; 81003; 81025; 83735; 85025; 85610; 85730; 93005; 94760; 96361; 96374; 96375; 99285; J2250; J7030

== ENCOUNTER 2020-02-22 18:25 | Emergency (ER) | payer SELFPAY ==
--- OUTSIDE RECORDS SUMMARY | 2020-02-22 18:26 | XMS REPORT ---
:1990 Author Organization [facility] t Address [address] [place] [address] [place] [id number] Care Team Providers Name Role Phone Unavailable Unavailable Unavailable Problems This patient has no known problems. Allergies, Adverse Reactions, Alerts This patient has no known allergies or adverse reactions. Medications This patient has no known medications. Procedures This patient has no known procedures. Results This patient has no known results.
--- NOTE | 2020-02-22 19:33 | ER ---
Nurse's Notes [facility] Name: Ernestina Messina Age: 29 yrs Sex: Female : 1990 Arrival Date: 02/22/2020 Time: 18:28 Bed 16 Private MD: Diagnosis: Cutaneous abscess of groin-labial, spontaneous drainage Presentation: 02/21 18:29 Chief complaint: Patient states: abscess to the labia majora started yesterday. It sv opened on its own. c/o "puss" and blood coming out from it and dizziness. Coronavirus screen: Proceed with normal triage. Patient denies a cough. Patient denies shortness of breath or difficulty breathing. Patient reports a measured and/or subjective temperature greater than 100.4F. Patient denies travel on a cruise ship or to a country the [facility] currently lists as an affected area. Patient denies contact with known and/or suspected case of COVID-19. Ebola Screen: No symptoms or risks identified at this time. Risk Assessment: Do you want to hurt yourself or someone else? Patient reports no desire to harm self or others. Onset of symptoms was February 21, 2020. 18:29 Method Of Arrival: Ambulatory sv 18:29 Acuity: VINI 3 sv 18:32 Initial Sepsis Screen: Does the patient meet any 2 criteria? No. Patient's initial sv sepsis screen is negative. Does the patient have a suspected source of infection? Yes: Skin breakdown/wound. Triage Assessment: 18:29 General: Appears in no apparent distress. uncomfortable, Behavior is calm, cooperative, sv appropriate for age. Pain: Complains of pain in right labia majora and left labia majora. Neuro: Level of Consciousness is awake, alert, obeys commands, Oriented to person, place, time, situation, Gait is steady. Respiratory: Respiratory effort is even, unlabored, Respiratory pattern is regular, symmetrical. Derm: Skin is normal. 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 - Social history:: Smoking status: Patient denies any tobacco usage or history of. - Family history:: not pertinent. Screenin:54 Abuse screen: Denies threats or abuse. Denies injuries from another. Nutritional ca1 screening: No deficits noted. Tuberculosis screening: No symptoms or risk factors identified. Fall Risk None identified. Assessment: 18:54 General: Appears in no apparent distress. uncomfortable, Behavior is calm, cooperative, ca1 appropriate for age. Pain: Complains of pain in groin Pain currently is 10 out of 10 on a pain scale. Pain began 2-3 days ago. Neuro: Level of Consciousness is awake, alert, obeys commands, Oriented to person, place, time, situation, Appropriate for age. Derm: Skin is intact, is healthy with good turgor, Skin is pink, warm \\T\\ dry. Abscess located on right labia minora and upper labia is dime sized, is hot to touch, is red, is raised, was lanced by patient prior to arrival. Musculoskeletal: Circulation, motion, and sensation intact. Capillary refill < 3 seconds. 19:15 Reassessment: Patient appears in no apparent distress at this time. Patient and/or wh family updated on plan of care and expected duration. Pain level reassessed. Patient is alert, oriented x 3, equal unlabored respirations, skin warm/dry/pink. Vital Signs: 18:32 BP 121 / 78; Pulse 85; Resp 20; Temp 99.9; Pulse Ox 100% ; Weight 72.57 kg; Height 5 sv ft. 2 in. (157.48 cm); 19:15 BP 114 / 55; Pulse 79; Resp 18; Pulse Ox 99% ; wh 18:32 Body Mass Index 29.26 (72.57 kg, 157.48 cm) sv ED Course: 18:28 Patient arrived in ED. sv 18:31 Triage completed. sv 18:32 Arm band placed on. sv 18:44 Tootie Tyler, RN is Primary Nurse. ca1 18:54 Patient has correct armband on for positive identification. Placed in gown. Bed in low ca1 position. Call light in reach. Side rails up X 1. Pulse ox on. NIBP on. Warm blanket given. 18:54 Patient did not have IV access during this emergency room visit. ca1 19:12 Eugene Gustafson MD is Attending Physician. sonam 19:28 Piero Ramirez MD is Referral Physician. sonam 19:44 No provider procedures requiring assistance completed. Patient did not have IV access during this emergency room visit. Administered Medications: 19:36 Drug: Doxycycline 200 mg Route: PO; 19:44 Follow up: Response: No adverse reaction 19:36 Drug: Bactrim (160 mg-800 mg (DS) 1 tablet Route: PO; 19:44 Follow up: Response: No adverse reaction Outcome: 19:32 Discharge ordered by . [facility] 19:44 Discharged to home ambulatory. 19:44 Condition: stable 19:44 Discharge instructions given to patient, Instructed on discharge instructions, follow up and referral plans. no drinking with medication, no driving heavy equipment, medication usage, wound care, POC Demonstrated understanding of instructions, follow-up care, medications, wound care, POC Prescriptions given X 3. 19:45 Patient left the ED. Signatures: Jasmyne Plascencia, BUFFY RN Eugene Saxena MD MD cha Habalo, Winsy Tootie Tyler RN RN ca1
--- NOTE | 2020-02-22 19:33 | EDPHYS ---
Physician Documentation [facility] Name: Ernestina Messina Age: 29 yrs Sex: Female : 1990 Arrival Date: 02/22/2020 Time: 18:28 Bed 16 Private MD: ED Physician Eugene Gustafson HPI: 02/21 19:24 This 29 yrs old Female presents to ER via Ambulatory with complaints of sonam Abscess. 19:24 The patient presents with cellulitis of the upper labia, the patient presents with a sonam swollen area of the upper labia. Description: The affected area is small, confluent, draining, erythematous, fluctuant. Onset: The symptoms/episode began/occurred 3 day(s) ago. Possible cause(s): unknown. Associated signs and symptoms: The patient has no apparent associated signs or symptoms. Severity of symptoms: At their worst the symptoms were mild, in the emergency department the symptoms are unchanged. The patient has not experienced similar symptoms in the past. 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 - Social history:: Smoking status: Patient denies any tobacco usage or history of. - Family history:: not pertinent. ROS: 19:24 Constitutional: Negative for fever, chills, and weight loss, Eyes: Negative for injury, sonam pain, redness, and discharge, ENT: Negative for injury, pain, and discharge, Neck: Negative for injury, pain, and swelling, Cardiovascular: Negative for chest pain, palpitations, and edema, Respiratory: Negative for shortness of breath, cough, wheezing, and pleuritic chest pain, Abdomen/GI: Negative for abdominal pain, nausea, vomiting, diarrhea, and constipation, Back: Negative for injury and pain, : Negative for injury, bleeding, discharge, and swelling, MS/Extremity: Negative for injury and deformity, Neuro: Negative for headache, weakness, numbness, tingling, and seizure, Psych: Negative for depression, anxiety, suicide ideation, homicidal ideation, and hallucinations, Allergy/Immunology: Negative for hives, rash, and allergies, Endocrine: Negative for neck swelling, polydipsia, polyuria, polyphagia, and marked weight changes, Hematologic/Lymphatic: Negative for swollen nodes, abnormal bleeding, and unusual bruising. 19:24 Skin: Positive for swelling, of the clitoris. Exam: 19:24 Constitutional: This is a well developed, well nourished patient who is awake, alert, sonam and in no acute distress. Head/Face: Normocephalic, atraumatic. Eyes: Pupils equal round and reactive to light, extra-ocular motions intact. Lids and lashes normal. Conjunctiva and sclera are non-icteric and not injected. Cornea within normal limits. Periorbital areas with no swelling, redness, or edema. ENT: Nares patent. No nasal discharge, no septal abnormalities noted. Tympanic membranes are normal and external auditory canals are clear. Oropharynx with no redness, swelling, or masses, exudates, or evidence of obstruction, uvula midline. Mucous membranes moist. Neck: Trachea midline, no thyromegaly or masses palpated, and no cervical lymphadenopathy. Supple, full range of motion without nuchal rigidity, or vertebral point tenderness. No Meningismus. Chest/axilla: Normal chest wall appearance and motion. Nontender with no deformity. No lesions are appreciated. Cardiovascular: Regular rate and rhythm with a normal S1 and S2. No gallops, murmurs, or rubs. Normal PMI, no JVD. No pulse deficits. Respiratory: Lungs have equal breath sounds bilaterally, clear to auscultation and percussion. No rales, rhonchi or wheezes noted. No increased work of breathing, no retractions or nasal flaring. Abdomen/GI: Soft, non-tender, with normal bowel sounds. No distension or tympany. No guarding or rebound. No evidence of tenderness throughout. Back: No spinal tenderness. No costovertebral tenderness. Full range of motion. Female : Normal external genitalia. MS/ Extremity: Pulses equal, no cyanosis. Neurovascular intact. Full, normal range of motion. Neuro: Awake and alert, GCS 15, oriented to person, place, time, and situation. Cranial nerves II-XII grossly intact. Motor strength 5/5 in all extremities. Sensory grossly intact. Cerebellar exam normal. Normal gait. Psych: Awake, alert, with orientation to person, place and time. Behavior, mood, and affect are within normal limits. 19:24 Skin: abscess, that is small, cellulitis, that is mild, induration, that is mild is noted, injury, is not appreciated. Vital Signs: 18:32 BP 121 / 78; Pulse 85; Resp 20; Temp 99.9; Pulse Ox 100% ; Weight 72.57 kg; Height 5 sv ft. 2 in. (157.48 cm); 19:15 BP 114 / 55; Pulse 79; Resp 18; Pulse Ox 99% ; wh 18:32 Body Mass Index 29.26 (72.57 kg, 157.48 cm) sv MDM: 19:12 Patient medically screened. [facility] 19:27 Data reviewed: vital signs, nurses notes, lab test result(s). Data interpreted: Cardiac [facility] monitor: not applicable for this patient encounter. Pulse oximetry: is not applicable for this patient encounter. on room air. Counseling: I had a detailed discussion with the patient and/or guardian regarding: the historical points, exam findings, and any diagnostic results supporting the discharge/admit diagnosis, lab results, the need for outpatient follow up, for definitive care, an OB/Gyne specialist. 19:33 Differential diagnosis: abscess, cellulitis, insect bite. ED course: discussed plan, [facility] sitz baths, abx, no sex, close fu, return if worse, ow follow up dr [place]in. 02/21 19:41 Order name: Urine Dipstick--Ancillary (enter results) [facility] 02/21 19:41 Order name: Urine --Ancillary (enter results) [facility] 02/21 19:23 Order name: Urine Dipstick-Ancillary (obtain specimen); Complete Time: 19:32 [facility] 02/21 19:23 Order name: Urine Test (obtain specimen); Complete Time: 19:32 [facility] Administered Medications: 19:36 Drug: Doxycycline 200 mg Route: PO; 19:44 Follow up: Response: No adverse reaction 19:36 Drug: Bactrim (160 mg-800 mg (DS) 1 tablet Route: PO; 19:44 Follow up: Response: No adverse reaction Disposition: 02/22/20 19:32 Discharged to Home. Impression: Cutaneous abscess of groin - labial, spontaneous drainage. - Condition is Stable. - Discharge Instructions: Skin Abscess, How to Take a Sitz Bath, Skin Abscess, [id number], Pelvic Rest. - Prescriptions for Tylenol- Codeine #3 300-30 mg Oral Tablet - take 2 tablets by ORAL route every 6 hours As needed; 20 tablet. Doxycycline Hyclate 100 mg Oral Tablet - take 1 tablet by ORAL route every 12 hours; 20 tablet. Bactrim DS 800- 160 mg Oral Tablet - take 1 tablet by ORAL route every 12 hours for 10 days; 20 tablet. - Work release form, Medication Reconciliation Form, Thank You Letter, Antibiotic Education, Prescription Opioid Use form. - Follow up: Private Physician; When: 2 - 3 days; Reason: Recheck today's complaints, Continuance of care, Re-evaluation by your physician. Follow up: Piero Ramirez MD; When: 2 - 3 days; Reason: Recheck today's complaints, Continuance of care, Re-evaluation by your physician. - Problem is new. - Symptoms have improved. Signatures: Dispatcher [employer] Jasmyne Henry RN RN sv Anderson, Corey, MD MD cha Habalo, Winsy wh Corrections: (The following items were deleted from the chart) 19:45 19:32 02/22/2020 19:32 Discharged to Home. Impression: Cutaneous abscess of groin - wh labial, spontaneous drainage. Condition is Stable. Forms are Medication Reconciliation Form, Thank You Letter, Antibiotic Education, Prescription Opioid Use. Follow up: Private Physician; When: 2 - 3 days; Reason: Recheck today's complaints, Continuance of care, Re-evaluation by your physician. Follow up: Piero Ramirez; When: 2 - 3 days; Reason: Recheck today's complaints, Continuance of care, Re-evaluation by your physician. Problem is new. Symptoms have improved. sonam
[2020-02-22] MEDS ORDERED: DOXYCYCLINE 100 MG CAP PO ONE (19:41)
[2020-02-22] MEDS ORDERED: SMZ./TMP. 800/160 MG TABLET ONE (19:41)
[2020-02-22 19:49] VITALS: TEMP 99.9
[2020-02-22 19:50] VITALS: BP 114/55; O2SAT 99
[2020-02-22 19:51] LABS: Urine Blood NEGATIVE (NEG); Urine Glucose NEGATIVE (NEG); Urine Protein TRACE (NEG); Urine Specific Gravity 1.025 (1.005-1.030); Urine pH 7.5 (5.0-7.0)
== END 2020-02-22 19:45 | disposition home or self-care (01) ==
LOC: ER 18:25
DX: L02.214 Cutaneous abscess of groin (principal)
CPT/HCPCS: 81003; 81025; 99283

== ENCOUNTER 2020-05-07 08:03 | Emergency (ER) | payer SELFPAY ==
[2020-05-07 09:05] LABS: Barbiturates NEGATIVE (NEGATIVE); Benzodiazepines NEGATIVE (NEGATIVE); Cocaine NEGATIVE (NEGATIVE); METHAMPHETAM NEGATIVE (NEGATIVE); Methadone NEGATIVE (NEGATIVE); Opiates NEGATIVE (NEGATIVE); Phencyclidine NEGATIVE (NEGATIVE); THC Cannibis NEGATIVE (NEGATIVE)
[2020-05-07 09:28] LABS: Urine Blood 2+ (NEG); Urine Glucose NEGATIVE (NEG); Urine Protein NEGATIVE (NEG); Urine Specific Gravity >1.030 (1.005-1.030)
--- NOTE | 2020-05-07 09:39 | ER ---
Nurse's Notes [facility] Name: Ernestina Messina Age: 29 yrs Sex: Female : 1990 Arrival Date: 05/07/2020 Time: 08:04 Bed 18 Private MD: Diagnosis: Anxiety disorder, unspecified Presentation: 05/07 08:15 Chief complaint: Patient states: "I ran out of my anxiety and depression medication. ea Since last night I haven't been able to sleep and I'm having bad suicidal thoughts." Pt does not have a plan. Coronavirus screen: Client denies travel out of the [place] in the last 14 days. At this time, the client does not indicate any symptoms associated with coronavirus-19. Ebola Screen: Patient denies exposure to infectious person. No symptoms or risks identified at this time. Initial Sepsis Screen: Does the patient meet any 2 criteria? No. Patient's initial sepsis screen is negative. Does the patient have a suspected source of infection? No. Patient's initial sepsis screen is negative. Risk Assessment: Do you want to hurt yourself or someone else? Patient reports no desire to harm self or others. Onset of symptoms was May 06, 2020. 08:15 Method Of Arrival: Ambulatory ea 08:15 Acuity: VINI 2 ea 08:18 Note pt in restroom at this time. tw2 Historical: - Allergies: 08:17 No Known Allergies; ea - Home Meds: 08:17 None [Active]; ea - PMHx: 08:17 Anxiety; Depression; ea - PSHx: 08:17 None; ea - Immunization history:: Adult Immunizations up to date. - Social history:: Smoking status: Patient denies any tobacco usage or history of. Patient/guardian denies using street drugs. Screenin:19 Abuse screen: Denies threats or abuse. Nutritional screening: No deficits noted. tw2 Tuberculosis screening: No symptoms or risk factors identified. Fall Risk None identified. Assessment: 09:20 Reassessment: attempted to call [facility] and [facility] pharmacy to see which medication ss patient is currently taking. Both pharmacies are unsure as they do not have anything recent on file. Attempting now to get in touch with [facility] staff Kaylynn Enrique LVN. Left awaiting phone call back. 09:43 Reassessment: Denies SI/ HI on discharge. Verbalizes understanding to come back and/or ss call 911 if she has any SI thoughts. Verbalizes understanding importance of follow up instructions. Vital Signs: 08:15 BP 117 / 81; Pulse 87; Resp 16; Temp 98.2(TE); Pulse Ox 100% on R/A; Weight 68.04 kg; ea Height 5 ft. 2 in. (157.48 cm); Pain 0/10; 08:15 Body Mass Index 27.44 (68.04 kg, 157.48 cm) ea ED Course: 08:04 Patient arrived in ED. ds1 08:13 Rey Marin MD is Attending Physician. kdr 08:16 Triage completed. ea 08:17 Arm band placed on right wrist. ea 08:18 Lynnette Lux, RN is Primary Nurse. tw2 08:22 Placed in gown. Bed in low position. tw2 09:43 No provider procedures requiring assistance completed. Patient did not have IV access ss during this emergency room visit. Administered Medications: No medications were administered Outcome: 09:39 Discharge ordered by . kdr 09:43 Discharged to home ambulatory. ss 09:43 Condition: good 09:43 Discharge instructions given to patient, Instructed on discharge instructions, follow up and referral plans. medication usage, Demonstrated understanding of instructions, follow-up care, medications, Prescriptions given X 1. 09:44 Patient left the ED. ss Signatures: Rey Marin MD MD kdr Sanford, Demi ds1 Jennifer Fuller RN RN Lynnette Lux, BUFFY BAER [facility] Cyndee Prado RN RN
--- NOTE | 2020-05-07 09:40 | EDPHYS ---
Physician Documentation [facility] Name: Ernestina Messina Age: 29 yrs Sex: Female : 1990 Arrival Date: 05/07/2020 Time: 08:04 Bed 18 Private MD: ED Physician Rey Marin HPI: 05/07 09:24 This 29 yrs old Female presents to ER via Ambulatory with complaints of kdr Anxiety, Suicidal Ideation. 09:24 The patient presents to the emergency department with anxiety, over work, Chronic kdr anxiety. Historical: - Allergies: 08:17 No Known Allergies; ea - Home Meds: 08:17 None [Active]; ea - PMHx: 08:17 Anxiety; Depression; ea - PSHx: 08:17 None; ea - Immunization history:: Adult Immunizations up to date. - Social history:: Smoking status: Patient denies any tobacco usage or history of. Patient/guardian denies using street drugs. ROS: 09:43 Constitutional: Negative for fever, chills, and weight loss, Eyes: Negative for injury, kdr pain, redness, and discharge, ENT: Negative for injury, pain, and discharge, Neck: Negative for injury, pain, and swelling, Cardiovascular: Negative for chest pain, palpitations, and edema, Respiratory: Negative for shortness of breath, cough, wheezing, and pleuritic chest pain, Abdomen/GI: Negative for abdominal pain, nausea, vomiting, diarrhea, and constipation, Back: Negative for injury and pain, : Negative for injury, bleeding, discharge, and swelling, MS/Extremity: Negative for injury and deformity, Skin: Negative for injury, rash, and discoloration, Neuro: Negative for headache, weakness, numbness, tingling, and seizure activity. Allergy/Immunology: Negative for hives, rash, and allergies, Endocrine: Negative for neck swelling, polydipsia, polyuria, polyphagia, and marked weight changes, Hematologic/Lymphatic: Negative for swollen nodes, abnormal bleeding, and unusual bruising. 09:43 Psych: Positive for anxiety, Negative for suicide gesture, suicidal ideation, She reported SI to the nursing staff but denied it to me. Exam: 09:43 Constitutional: This is a well developed, well nourished patient who is awake, alert, kdr and in no acute distress. Head/Face: Normocephalic, atraumatic. Eyes: Pupils equal round and reactive to light, extra-ocular motions intact. Lids and lashes normal. Conjunctiva and sclera are non-icteric and not injected. Cornea within normal limits. Periorbital areas with no swelling, redness, or edema. Neck: Trachea midline, no thyromegaly or masses palpated, and no cervical lymphadenopathy. Supple, full range of motion without nuchal rigidity, or vertebral point tenderness. No Meningismus. Chest/axilla: Normal chest wall appearance and motion. Nontender with no deformity. No lesions are appreciated. Cardiovascular: Regular rate and rhythm with a normal S1 and S2. No gallops, murmurs, or rubs. Normal PMI, no JVD. No pulse deficits. Respiratory: Lungs have equal breath sounds bilaterally, clear to auscultation and percussion. No rales, rhonchi or wheezes noted. No increased work of breathing, no retractions or nasal flaring. Abdomen/GI: Soft, non-tender, with normal bowel sounds. No distension or tympany. No guarding or rebound. No evidence of tenderness throughout. Back: No spinal tenderness. No costovertebral tenderness. Full range of motion. Skin: Warm, dry with normal turgor. Normal color with no rashes, no lesions, and no evidence of cellulitis. MS/ Extremity: Pulses equal, no cyanosis. Neurovascular intact. Full, normal range of motion. Neuro: Awake and alert, GCS 15, oriented to person, place, time, and situation. Cranial nerves II-XII grossly intact. Motor strength 5/5 in all extremities. Sensory grossly intact. Cerebellar exam normal. Normal gait. 09:43 Psych: Behavior/mood is pleasant, cooperative, anxious, appropriate for age, Affect is calm, Oriented to person, place, time, Patient has no thoughts/intents to harm self or others. Judgement / Insight is normal. Memory is normal. Delusions/hallucinations are not present. Vital Signs: 08:15 BP 117 / 81; Pulse 87; Resp 16; Temp 98.2(TE); Pulse Ox 100% on R/A; Weight 68.04 kg; ea Height 5 ft. 2 in. (157.48 cm); Pain 0/10; 08:15 Body Mass Index 27.44 (68.04 kg, 157.48 cm) coco MDM: 09:39 Patient medically screened. kdr 09:43 Data reviewed: vital signs, nurses notes. Counseling: I had a detailed discussion with [facility] the patient and/or guardian regarding: the historical points, exam findings, and any diagnostic results supporting the discharge/admit diagnosis, the need for outpatient follow up. 05/07 08:26 Order name: Urine Drug Screen kdr 05/07 08:26 Order name: IV Saline Lock kdr 05/07 08:26 Order name: Labs collected and sent kdr 05/07 08:34 Order name: Diet Regular; Complete Time: 08:34 ss 05/07 08:58 Order name: Urine Dipstick--Ancillary (enter results) bd 05/07 08:58 Order name: Urine --Ancillary (enter results) bd 05/07 08:26 Order name: Urine Dipstick-Ancillary (obtain specimen) kdr 05/07 08:26 Order name: Urine Test (obtain specimen) [facility] Administered Medications: No medications were administered Disposition: 05/07/20 09:39 Discharged to Home. Impression: Anxiety disorder, unspecified. - Condition is Stable. - Discharge Instructions: Panic Attacks, [id number], Generalized Anxiety Disorder. - Prescriptions for Ativan 1 mg Oral Tablet - take 1 tablet by ORAL route every 8 hours As needed; 5 tablet. - Medication Reconciliation Form, Thank You Letter form. - Follow up: Private Physician; When: 2 - 3 days; Reason: If symptoms return, Further diagnostic work-up, Recheck today's complaints, Continuance of care, Re-evaluation by your physician. - Problem is an ongoing problem. - Symptoms are unchanged. Signatures: Dispatcher [employer] EDUT Rey Marin MD MD [facility] Jennifer Fuller RN RN ss Cyndee Prado RN RN ea Corrections: (The following items were deleted from the chart) 09:44 09:39 05/07/2020 09:39 Discharged to Home. Impression: Anxiety disorder, unspecified. ss Condition is Stable. Forms are Medication Reconciliation Form, Thank You Letter, Antibiotic Education, Prescription Opioid Use. Follow up: Private Physician; When: 2 - 3 days; Reason: If symptoms return, Further diagnostic work-up, Recheck today's complaints, Continuance of care, Re-evaluation by your physician. Problem is an ongoing problem. Symptoms are unchanged. kdr
[2020-05-07 09:49] VITALS: BP 117/81; TEMP 98.2; O2SAT 100
== END 2020-05-07 09:44 | disposition home or self-care (01) ==
LOC: ER 08:03
DX: F41.9 Anxiety disorder, unspecified (principal)
CPT/HCPCS: 80307; 81003; 81025; 99282

== ENCOUNTER 2021-04-24 09:20 | Emergency (ER) | payer SELFPAY ==
--- OUTSIDE RECORDS SUMMARY | 2021-04-24 09:23 | XMS REPORT | Continuity of Care Document ---
:1990 Author Organization [facility] t Address [address] [place] [address] Care Team Providers Name Role Phone Asked, No Pcp Primary Care Physician Unavailable Lux REDD Attending Clinician Problems Condition Condition Condition Status Onset Resolution Last Treating Co mments Source Name Details Category Date Date Treatment Clinician Date Mastodynia Problem Active 2015-10-02 M emoria 04:04:23 l [place] Mastodynia Active Problem 10/02/2015 Antoine Breast Breast Diagnosis Active 2015-10-02 Mem oria lump 04:04:23 l Breast Eduardo lump Active Diagnosis 10/02/2015 John Breast Allergies, Adverse Reactions, Alerts This patient has no known allergies or adverse reactions. Social History Social Habit Start Date Stop Date Quantity Comments Source Islam: 2015-09-08 2015-09-08 [facility] 00:00:00 00:00:00 Sex Assigned At [birth year] [facility] ethodist 00:00:00 00:00:00 Medications Ordered Filled Start Stop Current Ordering Indication Dosage Frequency Signature Comments Components Source Medication Medication Date Date Medication? Clinician (SIG) Name Name acetaminoph 2020- No acute pain 1{tbl} Q6H Take 1-2 Lowe en-codeine 6-15 06-25 tablets by Me bird (TYLENOL 00:00: 23:[address] WITH 00 :00 every 6 CODEINE #3) (six) 300-30 mg hours as per tablet needed for mild pain for up to 10 days .acute pain. naproxen 2020- No 500mg Q.5D Take 1 [place] on (NAPROSYN) 6-15 06-25 tablet Method i 500 MG 00:00: 23:59 ([address] tablet 00 :00 total) by mouth 2 (two) times a day with meals for 10 days. cefpodoxime 100mg Q.5D Take 1 Ba cahvez (VANTIN) 03-17 tablet Methodi 100 MG 00:00: 23:59 ([address] tablet 00 :00 total) by mouth 2 (two) times a day for 7 days. ibuprofen 2014-10 Yes Halie 1 tab Memor ia 2-31 Antoine l 03:56: [place] 42 Vital Signs Vital Name Observation Time Observation Value Comments Source Systolic blood 2021-03-17 14:00:00 124 mm[Hg] Matthew n [facility] pressure Diastolic blood 2021-03-17 14:00:00 74 mm[Hg] Penelope fernández [facility] pressure Heart rate 2021-03-17 14:00:00 86 /min Mynor Donauhe Body temperature 2021-03-17 14:00:00 36.67 Mabel Madan ton [facility] Respiratory rate 2021-03-17 14:00:00 20 /min Madan Donahue Oxygen saturation in 2021-03-17 14:00:00 97 /min Mynor Donahue Arterial blood by Pulse oximetry Body height 2021-03-17 09:52:00 157.5 cm Mynor Donahue Body weight 2021-03-17 09:52:00 77.111 kg Mynor Donaheu BMI 2021-03-17 09:52:00 31.09 kg/m2 Mynor Donahue Weight 2015-09-08 17:30:00 [facility] 2015-09-08 17:30:00 [facility] [place] Diastolic (mm Hg) 2015-09-08 [facility]:30[facility] 2015-09-08 17:30:00 Matthew Clark Procedures Procedure Date / Time Performing Clinician Source Performed CT ABDOMEN PELVIS W 2021-03-17 12:15:00 Jose Wasserman CONTRAST US PELVIC TRANSVAGINAL 2021-03-17 12:15:00 Jose Wasserman US PELVIC TRANSABDOMINAL 2021-03-17 12:15:00 Jose Wasserman ston [facility] URINE CULTURE 2021-03-17 10:55:00 Jose Wasserman Meth odist NEISSERIA GONORRHOEAE, TMA 2021-03-17 10:23:00 Lux Jose Donahue CHLAMYDIA TRACHOMATIS, TMA 2021-03-17 10:23:00 Lux Jose Donahue HC COMPLETE BLD COUNT 2021-03-17 10:23:00 Jose Wasserman [facility] W/AUTO DIFF COMPREHENSIVE METABOLIC 2021-03-17 10:23:00 Jose Wasserman [facility] PANEL LIPASE LEVEL 2021-03-17 10:23:00 Jose Wasserman odist URINALYSIS SCREEN AND 2021-03-17 10:23:00 Jose Wasserman [facility] MICROSCOPY, WITH REFLEX TO CULTURE HCG QUALITATIVE, URINE 2021-03-17 10:23:00 Jose Wasserman on Temple SCREEN ESTIMATED GFR 2021-03-17 10:23:00 Jose Wasserman Meth odist ECG 12-LEAD 2021-03-17 10:12:06 Jose Wasserman odist ECG ED PRELIMINARY 2021-03-17 10:09:26 Jose Wasserman ethodist INTERPRETATION Plan of Care Planned Activity Planned Date Details Comments Source Future Scheduled 2021-05-03 INFLUENZA VACCINE Matthew narayanan [facility] Test 00:00:00 [code = INFLUENZA VACCINE] Future Scheduled 2010 Screening for Lowe La [facility]odist Test 00:00:00 malignant neoplasm of cervix (procedure) [code = 613973983] Future Scheduled 2007 Hepatitis C Lowe Met hodist Test 00:00:00 screening (procedure) [code = 662185415] Future Scheduled 2001 COVID-19 VACCINE (1) Rosi bergmanlady [facility] Test 00:00:00 [code = COVID-19 VACCINE (1)] Encounters Start End Encounter Admission Attending Care Care Encounter Source Date/Time Date/Time Type Type Clinicians Facility Department ID 2021-03-17 2021-03-[address] [id number] [place] 00:00:00 00:00:[address] 2019-11-11 2019-11-11 Emergency E [facility] [id number] [facility] 17:53:00 17:53:00 2015-09-24 2015-09-24 Outpatient John John [id number] 12:30:00 12:30:00 Breast Breast alWork s DICK Gunn PA 2015-09-08 2015-09-08 Outpatient John John [id number] [facility] 11:30:00 11:30:00 Breast Breast alWork s DICK Gunn PA Results Test Description Test Time Test Comments Results Result Comments Source ECG 12 lead 2021-03-17 17:17:53 Test Item Value Reference Range Interpretation Comme nts Ventricular rate (test code = 253) 75 Atrial rate (test code = 255) 75 [place] interval (test code = 266) 140 QRSD interval (test code = 260) 80 QT interval (test code = 264) 358 QTC interval (test code = 265) 399 P axis 1 (test code = 267) 62 QRS axis 1 (test code = 268) 70 T wave axis (test code = 270) 57 EKG impression (test code = 273) Normal sinus rhythm-Normal ECG-In automated comparison with ECG of 17-MAR-2021 10:10,-Previous ECG has undetermined rhythm, needs review- [facility] Pelvic [id number] 12:29:13Hm Interface, Radiology Results 03/17/2021 12:32 PM CDT EXAMINATION: US PELVIC TRANSVAGINALCLINICAL HISTORY: 30 years Female RLQ painCOMPARISON: None.TECHNIQUE:Transabdominal and endovaginal sonographic images of the pelvis were obtained. Grayscale, color Doppler, and spectral waveform analysis of the ovarian vessels was performed.FINDINGS:The uterus measures 9.2 x 4.3 x 5.0 cmThere are no focal masses identified.The endometrial stripe measures 5 mmThe right ovary measures 2.4 x 2.5 x 1.7 cmNormal Doppler flow was present.Small 0.5 and 0.4 cm follicles/cysts in the right ovary isThe left ovary measures 3.1 x 1.5 x 1.6 cmNormal Doppler flow was present.Small nabothian cysts in the cervixThere is trace fluid in the dadvegyut-mc-mvd.Impression:Small subcentimeter cysts or follicles in the right ovary with some trace freefluid in the pelvis. Nabothian cysts in the [facility]ixHouston [facility] Pelvic Transvaginal 2021-03-17 12:28:58Hm Interface, Radiology Results 03/17/2021 12:32 PM CDT EXAMINATION: US PELVIC TRANSVAGINALCLINICAL HISTORY: 30 years Female RLQ painCOMPARISON: None.TECHNIQUE:Transabdominal and endovaginal sonographic images of the pelvis were obtained. Grayscale, color Doppler, and spectral waveform analysis of the ovarian vessels was performed.FINDINGS:The uterus measures 9.2 x 4.3 x 5.0 cmThere are no focal masses identified.The endometrial stripe measures 5 mmThe right ovary measures 2.4 x 2.5 x 1.7 cmNormal Doppler flow was present.Small 0.5 and 0.4 cm follicles/cysts in the right ovary isThe left ovary measures 3.1 x 1.5 x 1.6 cmNormal Doppler flow was present.Small nabothian cysts in the cervixThere is trace fluid in the tyonuqixh-tf-wad.Impression:Small subcentimeter cysts or follicles in the right ovary with some trace freefluid in the pelvis. Nabothian cysts in the cervixHouston MethodistCT Abdomen Pelvis W [id number] 12:23:11Hm Interface, Radiology Results 03/17/2021 12:26 PM CDT EXAMINATION: CT ABDOMEN PELVIS W CONTRASTCLINICAL HISTORY: 30 yearsFemaleRLQ appendictisi NO PO CONTRASTTECHNIQUE: Multiple axial images of the abdomen and pelvis were obtained following intravenous administration of iodinated contrast. Sagittal and coronal computerized reformatted images were also obtained. CT imaging was performed with iterative reconstruction techniques and/or automated exposure control to reduce radiation dose. COMPARISON: None.IMPRESSION:LUNG BASES:The lung bases are free of acute disease.ABDOMEN:Liver: The liver is normal. No focal mass.Gallbladder/Biliary: The gallbladder is normal. There is no evidence of intra or extrahepatic biliary ductal dilatation.Spleen: The spleen is not enlarged.Pancreas: The pancreas is unremarkable.Adrenal Glands: The adrenal glands are unremarkable.Kidneys: The kidneys are unremarkable. No mass, hydronephrosis or calculi.Vascular: The abdominal aorta is nonaneurysmal.Nodes: No enlarged retroperitoneal or mesenteri c lymphadenopathy.Bowel: The appendix is well-visualized and within normal limits. Small bowel colonare unremarkableAscites/fluid collections: No ascites or fluid collections.PELVIS:Small follicles orcysts in the ovaries with a small amount of free fluid in the pelvis. Probable nabothian cysts in the cervix. Further characterization with pelvic ultrasound is recommended. Patient has undergone priorbilateral tubal occlusionMUSCULOSKELETAL: No suspicious osseous lesions. SUMMARY:*No evidence of appendicitis. Previous small follicles or cysts in the ovaries with small amount of fluid in the pelvis.Hypoattenuating foci near the cervix likely represent nabothian cysts. Further characterization of th e pelvis with pelvic ultrasound is recommended.[facility] [place] [facility] [place] Preliminary Interpretation - Not an [id number] 10:09:26Jose Wasserman MD 03/17/2021 3:17 [facility] [place] [place] ED Preliminary Interpretation - Not an OrderPerformed by: Jose Wasserman MDAuthorized by: Jose Wasserman MD ECG reviewed by ED Physician in the absence of a strapper and buffer: yes Interpretation: Interpretation: normal Rate: ECG rate: 75 bpm ECG rate assessment: normal Rhythm: Rhythm: sinus rhythm Ectopy: Ectopy: none QRS: QRS axis: Normal QRS intervals: Normal (80 ms)ST segments: ST segments: NormalT waves: T waves: normal Comments: [place] Interval: 140 msQT/QTc: 358/399 Su Donahue
[2021-04-24 09:42] LABS: Urine Blood Trace-intact (Negative); Urine Glucose Negative (Negative); Urine Protein Negative (Negative); Urine Specific Gravity 1.025 (1.005-1.030)
[2021-04-24] MEDS ORDERED: ONDANSETRON 4 MG/2 ML VIAL ONE (10:07)
[2021-04-24] MEDS ORDERED: DICYCLOMINE HCL 10 MG CAP ONE (10:07)
[2021-04-24] MEDS ORDERED: FAMOTIDINE 20 MG/2 ML VIAL IV ONE (10:08)
[2021-04-24] MEDS ORDERED: NA CHLORIDE 0.9% 1,000 ML ONE ×2 (10:08→11:44)
--- NOTE | 2021-04-24 10:19 | RAD REPORT ---
EXAM DESCRIPTION: CT - Abdomen Pelvis W Contrast - 04/24/2021 10:04 am CLINICAL HISTORY: ABD PAIN COMPARISON: No comparisons TECHNIQUE: Biphasic, helical CT imaging of the abdomen and pelvis was performed following 100 ml non -ionic IV contrast. No oral contrast administered. All CT scans are performed using dose optimization technique as appropriate and may include automated exposure control or mA/KV adjustment according to patient size. FINDINGS: No suspicious findings in the lung bases. The liver, spleen, and pancreas show no suspicious findings. Gallbladder and biliary tree are also wi thout suspicious finding. Symmetric renal function is seen with no hydronephrosis or suspicious renal mass. No pyelonephritis o r acute parenchymal process. No bladder abnormalities. No adrenal abnormalities. Uterus and ovaries s how no suspicious findings. Fallopian tube occlusive device in place. No dilated bowel loops or bowel wall thickening. Appendix is normal. No free air, free fluid or infla mmatory stranding. No hernia, mass or bulky lymphadenopathy. No suspicious bony findings. IMPRESSION: Contrast enhanced CT abdomen and pelvis showing no acute or emergent finding.
[2021-04-24 10:20] LABS: Basophils % 0.3 % (0-1.3); Hematocrit 38.3 % (36.0-45.0); Lymphocytes % 13.5 % (15.3-44.8); MPV 9.6 fL (7.6-11.3); RBC Red Blood Cell Count 4.71 M/uL (3.86-4.86)
[2021-04-24 10:34] LABS: ALT/SGPT 22 U/L (12-78); AST/SGOT 10 U/L (15-37); Albumin 4.1 g/dL (3.4-5.0); Alkaline Phosphatase 79 U/L (45-117); BUN Blood Urea Nitrogen 6 mg/dL (7-18); Bicarbonate 26 mmol/L (21-32); Bilirubin Direct 0.2 mg/dL (0-0.2); Bilirubin Total 0.6 mg/dL (0.2-1.0); Glucose Level 110 mg/dL (74-106); Lipase 158 U/L (73-393); Magnesium 2.2 mg/dL (1.8-2.4); Potassium 3.3 mmol/L (3.5-5.1); Protein, Total 7.8 g/dL (6.4-8.2); Sodium Level 141 mmol/L (136-145)
--- NOTE | 2021-04-24 11:31 | EDPHYS ---
Physician Documentation [facility] Name: Ernestina Messina Age: 30 yrs Sex: Female : 1990 Arrival Date: 04/24/2021 Time: 09:21 Bed 6 Private MD: ED Physician Lisset Lin HPI: 04/24 09:34 This 30 yrs old Female presents to ER via Unassigned with complaints of cp Vomiting/Diarrhea, Dizziness, chills. 09:34 The patient presents to the emergency department with nausea, with "dry heaves", cp vomiting, that is continuous, diarrhea, that is continuous, abdominal pain, of the right lower quadrant, described as constant, and does not radiate. Onset: The symptoms/episode began/occurred yesterday. Possible causes: unknown. Associated signs and symptoms: Pertinent negatives: fever, GI bleeding. 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 - Social history:: Smoking status: Patient denies any tobacco usage or history of. ROS: 09:40 Constitutional: Positive for chills, poor PO intake, Negative for fever. cp 09:40 Eyes: Negative for injury, pain, redness, and discharge. cp 09:40 ENT: Negative for ear pain, sore throat, difficulty swallowing, difficulty handling secretions. 09:40 Cardiovascular: Negative for chest pain, edema, palpitations. 09:40 Respiratory: Negative for cough, shortness of breath, wheezing. 09:40 Abdomen/GI: Positive for abdominal pain, nausea, vomiting, and diarrhea, anorexia, Negative for constipation, hematemesis, black/tarry stool, rectal bleeding. 09:40 Back: Negative for radiated pain. 09:40 Neuro: Negative for dizziness, headache, weakness. 09:40 All other systems are negative. Exam: 09:45 Constitutional: The patient appears in no acute distress, alert, awake, non-toxic, well cp developed, well nourished, uncomfortable. 09:45 Head/Face: Normocephalic, atraumatic. cp 09:45 Eyes: Periorbital structures: appear normal, Conjunctiva: normal, no exudate, no injection, Sclera: no appreciated abnormality, Lids and lashes: appear normal, bilaterally. 09:45 ENT: External ear(s): are unremarkable, Nose: is normal, Mouth: Lips: moist, Oral mucosa: moist, Posterior pharynx: Airway: no evidence of obstruction, patent. 09:45 Chest/axilla: Inspection: normal. 09:45 Cardiovascular: Rate: tachycardic, Rhythm: regular. 09:45 Respiratory: the patient does not display signs of respiratory distress, Respirations: normal, no use of accessory muscles, no retractions, labored breathing, is not present, Breath sounds: are clear throughout, no decreased breath sounds. 09:45 Abdomen/GI: Inspection: abdomen appears normal, Bowel sounds: active, all quadrants, Palpation: soft, in all quadrants, mild abdominal tenderness, in the right upper quadrant and right lower quadrant, rebound tenderness, is not appreciated, involuntary guarding, is not appreciated. 09:45 Back: CVA tenderness, is absent. Vital Signs: 09:38 BP 140 / 77; Pulse 117; Resp 16 S; Temp 98.5; Pulse Ox 97% on R/A; Weight 81.65 kg; iw Height 5 ft. 2 in. (157.48 cm); Pain 10/10; 11:15 BP 111 / 75; Pulse 91; Pulse Ox 100% on R/A; ap3 09:38 Body Mass Index 32.92 (81.65 kg, 157.48 cm) iw MDM: 09:36 Patient medically screened. cp 09:45 Differential diagnosis: gastritis, appendicitis, viral gastroenteritis, cp gastroenteritis, UTI, dehydration, electrolyte abnormality. 11:30 Data reviewed: vital signs, nurses notes, lab test result(s), radiologic studies, CT cp scan. 11:30 Counseling: I had a detailed discussion with the patient and/or guardian regarding: the cp historical points, exam findings, and any diagnostic results supporting the discharge/admit diagnosis, lab results, radiology results, to return to the emergency department if symptoms worsen or persist or if there are any questions or concerns that arise at home. Response to treatment: the patient's symptoms have markedly improved after treatment, patient is well hydrated. VSS. Pain and nausea markedly improved, Vomiting resolved. Patient appears non-toxic. Will discharge to home for continued monitoring. 04/24 09:34 Order name: Basic Metabolic Panel; Complete Time: 10:38 cp 04/24 10:38 Interpretation: Normal except: K 3.3; CL 108; GLUC 110; BUN 6. cp 04/24 09:34 Order name: CBC with Diff; Complete Time: 10:32 cp 04/24 10:32 Interpretation: Normal except: RADHA% 79.0; LYM% 13.5. cp 04/24 09:34 Order name: Hepatic Function; Complete Time: 10:38 cp 04/24 09:34 Order name: Lipase; Complete Time: 10:38 cp 04/24 09:34 Order name: Urine Microscopic Only cp 04/24 09:34 Order name: Magnesium; Complete Time: 10:38 cp 04/24 09:34 Order name: CT Abd/Pelvis - IV Contrast Only; Complete Time: 10:32 cp 04/24 09:41 Order name: Urine Dipstick-Ancillary; Complete Time: 10:32 EDMS 04/24 11:46 Order name: Urine Culture EDDC 04/24 09:34 Order name: IV Saline Lock; Complete Time: 09:52 cp 04/24 09:34 Order name: Labs collected and sent; Complete Time: 09:52 cp 04/24 09:34 Order name: Urine Dipstick-Ancillary (obtain specimen); Complete Time: 09:52 cp 04/24 09:34 Order name: Urine Test (obtain specimen); Complete Time: 09:52 cp Administered Medications: 09:54 Drug: NS 0.9% 1000 ml Route: IV; Rate: 1 bolus; Site: right antecubital; ap3 11:28 Follow up: IV Status: Completed infusion; IV Intake: 1000ml ap3 09:54 Drug: Zofran (Ondansetron) 4 mg Route: IVP; Site: right antecubital; ap3 11:28 Follow up: Response: No adverse reaction; Nausea is decreased ap3 09:54 Drug: Pepcid (famotidine) 20 mg Route: IVP; Site: right antecubital; ap3 11:29 Follow up: Response: No adverse reaction ap3 11:29 Drug: Bentyl (dicyclomine) 20 mg Route: PO; ap3 11:46 Follow up: Response: No adverse reaction ap3 11:29 Drug: Potassium Effervescent Tablet 50 mEq Route: PO; ap3 11:46 Follow up: Response: No adverse reaction ap3 11:29 Drug: LoMOTIL (diphenoxylate-atropine) 2 tabs Route: PO; ap3 11:46 Follow up: Response: No adverse reaction ap3 11:29 Drug: NS 0.9% 1000 ml Route: IV; Rate: 1 bolus; Site: right antecubital; ap3 11:46 Follow up: Response: No adverse reaction ap3 12:11 Follow up: IV Status: Order to discontinue infusion ap3 Disposition Summary: 04/24/21 11:31 Discharge Ordered Location: Home cp Problem: new cp Symptoms: have improved cp Condition: Stable cp Diagnosis - Nausea with vomiting, unspecified cp - Diarrhea, unspecified cp Followup: cp - With: Private Physician - When: 2 - 3 days - Reason: Worsening of condition Discharge Instructions: - Discharge Summary Sheet cp - Food Choices to Help Relieve Diarrhea, Adult cp - Diarrhea, Adult cp - Nausea and Vomiting, Adult cp Forms: - Medication Reconciliation Form cp - Thank You Letter cp - Antibiotic Education cp - Prescription Opioid Use cp Prescriptions: - Zofran 4 mg Oral Tablet - take 1 tablet by ORAL route every 12 hours As needed; 20 tablet; Refills: 0, cp Product Selection Permitted - dicyclomine 20 mg Oral Tablet - take 1 tablet by ORAL route 4 times per day; 30 tablet; Refills: 0, Product cp Selection Permitted Addendum: 04/26/2021 17:06 Co-signature as Attending Physician, Lisset king a2 Signatures: Dispatcher [employer] Kitty Villatoro, RN RN Eugene Munoz PA PA cp Lisset Lin MD MD ma2 Mary Cardenas RN RN ap3
--- NOTE | 2021-04-24 11:31 | ER ---
Nurse's Notes [facility] Name: Ernestina Messina Age: 30 yrs Sex: Female : 1990 Arrival Date: 04/24/2021 Time: 09:21 Bed 6 Private MD: Diagnosis: Nausea with vomiting, unspecified;Diarrhea, unspecified Presentation: 04/24 09:38 Chief complaint: Patient states: has had right abd pain and vomiting and diarrhea since iw yesterday, no fever. Coronavirus screen: diarrhea, vomiting. Ebola Screen: Patient negative for fever greater than or equal to 101.5 degrees Fahrenheit, and additional compatible Ebola Virus Disease symptoms Patient denies exposure to infectious person. Patient denies travel to an Ebola-affected area in the 21 days before illness onset. No symptoms or risks identified at this time. Initial Sepsis Screen: Does the patient meet any 2 criteria? No. Patient's initial sepsis screen is negative. Does the patient have a suspected source of infection? No. Patient's initial sepsis screen is negative. Risk Assessment: Do you want to hurt yourself or someone else? Patient reports no desire to harm self or others. Onset of symptoms was April 23, 2021. 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 - Social history:: Smoking status: Patient denies any tobacco usage or history of. Screenin:57 Abuse screen: Denies threats or abuse. Nutritional screening: No deficits noted. ap3 Tuberculosis screening: No symptoms or risk factors identified. Fall Risk None identified. Assessment: 09:55 General: Appears uncomfortable, Behavior is cooperative, appropriate for age, restless. ap3 Pain: Complains of pain in abdomen Pain does not radiate. Pain currently is 10 out of 10 on a pain scale. Quality of pain is described as crampy, Pain began 1 day ago. Is continuous. Neuro: Level of Consciousness is awake, alert, obeys commands, Oriented to person, place, time, situation, Appropriate for age Moves all extremities. Gait is steady, Speech is normal. Cardiovascular: Denies chest pain, Capillary refill < 3 seconds Patient's skin is warm and dry. Respiratory: Airway is patent Respiratory effort is even, unlabored, Respiratory pattern is regular, symmetrical. GI: Abdomen is flat, Last BM was April 24, 2021. Bowel sounds present X 4 quads. Reports diarrhea. : No signs and/or symptoms were reported regarding the genitourinary system. EENT: No signs and/or symptoms were reported regarding the EENT system. Derm: No signs and/or symptoms reported regarding the dermatologic system. 11:45 Reassessment:. ap3 Vital Signs: 09:38 BP 140 / 77; Pulse 117; Resp 16 S; Temp 98.5; Pulse Ox 97% on R/A; Weight 81.65 kg; iw Height 5 ft. 2 in. (157.48 cm); Pain 10/10; 11:15 BP 111 / 75; Pulse 91; Pulse Ox 100% on R/A; ap3 09:38 Body Mass Index 32.92 (81.65 kg, 157.48 cm) iw ED Course: 09:21 Patient arrived in ED. am2 09:30 Eugene Loera PA is PHCP. cp 09:30 Lisset Lin MD is Attending Physician. cp 09:40 Mary Cardenas, BUFFY is Primary Nurse. ap3 09:40 Urine collected: clean catch specimen, constantino colored. dh3 09:42 Triage completed. iw 09:43 Arm band placed on. iw 09:48 Initial lab(s) drawn, by ma, sent to lab. Inserted saline lock: 20 gauge in right dh3 antecubital area, using aseptic technique. Blood collected. 09:57 Patient has correct armband on for positive identification. Bed in low position. Call ap3 light in reach. Side rails up X 1. Pulse ox on. Door closed. Noise minimized. 10:03 CT Abd/Pelvis - IV Contrast Only In Process Unspecified. EDMS 11:47 No provider procedures requiring assistance completed. ap3 12:11 IV discontinued, intact, bleeding controlled, No redness/swelling at site. Pressure ap3 dressing applied. Administered Medications: 09:54 Drug: NS 0.9% 1000 ml Route: IV; Rate: 1 bolus; Site: right antecubital; ap3 11:28 Follow up: IV Status: Completed infusion; IV Intake: 1000ml ap3 09:54 Drug: Zofran (Ondansetron) 4 mg Route: IVP; Site: right antecubital; ap3 11:28 Follow up: Response: No adverse reaction; Nausea is decreased ap3 09:54 Drug: Pepcid (famotidine) 20 mg Route: IVP; Site: right antecubital; ap3 11:29 Follow up: Response: No adverse reaction ap3 11:29 Drug: Bentyl (dicyclomine) 20 mg Route: PO; ap3 11:46 Follow up: Response: No adverse reaction ap3 11:29 Drug: Potassium Effervescent Tablet 50 mEq Route: PO; ap3 11:46 Follow up: Response: No adverse reaction ap3 11:29 Drug: LoMOTIL (diphenoxylate-atropine) 2 tabs Route: PO; ap3 11:46 Follow up: Response: No adverse reaction ap3 11:29 Drug: NS 0.9% 1000 ml Route: IV; Rate: 1 bolus; Site: right antecubital; ap3 11:46 Follow up: Response: No adverse reaction ap3 12:11 Follow up: IV Status: Order to discontinue infusion ap3 Intake: 11:28 IV: 1000ml; Total: 1000ml. ap3 Outcome: 11:31 Discharge ordered by . cp 12:11 Discharged to home ambulatory. ap3 12:11 Condition: good 12:11 Discharge instructions given to patient, Instructed on discharge instructions, follow up and referral plans. medication usage, Demonstrated understanding of instructions, follow-up care, medications, Prescriptions given X 2. 12:11 Patient left the ED. ap3 Signatures: Dispatcher [employer] EDMS Kitty Huber RN RN iw Page, Corey, PA PA cp Moreno, Amanda am2 Herrera, Deanna formerly [facility] Mary Cardenas RN RN ap3
[2021-04-24 11:44] LABS: Urine RBC <5 /HPF (NONE SEEN)
[2021-04-24] MEDS ORDERED: POTASSIUM 25 MEQ EFFERV TAB ONE (11:44)
[2021-04-24] MEDS ORDERED: DIPHENOX/ATROP SULF 1 TAB PO ONE (11:44)
[2021-04-24 11:45] LABS: Urine Bacteria 20-50 /HPF (<20); Urine Mucus 2+ /HPF (NONE SEEN)
[2021-04-24 12:18] VITALS: TEMP 98.5
[2021-04-24 12:19] VITALS: BP 111/75; O2SAT 100
== END 2021-04-24 12:11 | disposition home or self-care (01) ==
LOC: ER 09:20
DX: R19.7 Diarrhea, unspecified (principal)
CPT/HCPCS: 36415; 74177; 80048; 80076; 81003; 81015; 82565; 83690; 83735; 85025; 87086; 87088; 96361; 96374; 96375; 99284; J2405; J7030; Q9967

== ENCOUNTER 2021-07-16 09:17 | Emergency (ER) | payer OTHER, SELFPAY ==
[2021-07-16 10:10] LABS: Urine Blood 2+ (Negative); Urine Glucose Negative (Negative); Urine Protein Negative (Negative); Urine Specific Gravity 1.025 (1.005-1.030)
[2021-07-16 10:31] LABS: Urine Specific Gravity/Preg 1.025 (1.005-1.030)
[2021-07-16 10:53] LABS: Urine Blood 2+ (Negative); Urine Glucose Negative (Negative); Urine Protein Trace (Negative); Urine Specific Gravity 1.025 (1.005-1.030)
[2021-07-16] MEDS ORDERED: MORPHINE 4 MG/ML SYR ONE ×2 (10:55→12:28)
[2021-07-16] MEDS ORDERED: FAMOTIDINE 20 MG/2 ML VIAL IV ONE (10:55)
[2021-07-16] MEDS ORDERED: ONDANSETRON 4 MG/2 ML VIAL ONE ×2 (10:55→12:28)
[2021-07-16] MEDS ORDERED: NA CHLORIDE 0.9% 1,000 ML ONE (10:55)
[2021-07-16 11:01] LABS: Absolute Lymphocytes (CBC) 1.3 K/uL (0.7-4.9); Basophils % 0.4 % (0-1.3); Hematocrit 38.7 % (36.0-45.0); Lymphocytes % 11.9 % (15.3-44.8); MPV 9.2 fL (7.6-11.3); RBC Red Blood Cell Count 4.76 M/uL (3.86-4.86)
[2021-07-16 11:17] LABS: ALT/SGPT 36 U/L (12-78); AST/SGOT 18 U/L (15-37); Albumin 3.8 g/dL (3.4-5.0); Alkaline Phosphatase 94 U/L (45-117); BUN Blood Urea Nitrogen 8 mg/dL (7-18); Bicarbonate 27 mmol/L (21-32); Bilirubin Direct 0.1 mg/dL (0-0.2); Bilirubin Total 0.4 mg/dL (0.2-1.0); Glucose Level 95 mg/dL (74-106); Lipase 372 U/L (73-393); Potassium 4.3 mmol/L (3.5-5.1); Protein, Total 7.5 g/dL (6.4-8.2); Sodium Level 140 mmol/L (136-145)
--- NOTE | 2021-07-16 12:08 | RAD REPORT ---
EXAM DESCRIPTION: CTAbdomen Pelvis W Contrast - 07/16/2021 12:01 pm CLINICAL HISTORY: PAIN COMPARISON: Abdomen Pelvis W Contrast dated 04/24/2021 TECHNIQUE: CT of the abdomen and pelvis was performed. All CT scans are performed using dose optimization technique as appropriate and may include automated exposure control or mA/KV adjustment according to patient size. FINDINGS: Lower chest: No acute abnormality. Liver: No acute abnormality or suspicious lesions. Biliary: No biliary ductal dilatation. Stomach: No significant focal abnormality. Duodenum: No significant focal abnormality. Pancreas: No significant abnormality. Spleen: No significant abnormality. Adrenal: No suspicious lesions. Kidney/ureter: No hydronephrosis. No renal calculi. Retroperitoneum: No retroperitoneal adenopathy. Vascular: No aneurysm. Bowel: No significant focal abnormality. Normal appendix. Peritoneum: No ascites or free air. Bladder: Grossly unremarkable. Reproductive: No adnexal masses. Fallopian tube occluder device is. Bones: No acute fracture. Other: n/a IMPRESSION: No acute intra-abdominal or pelvic finding. Normal appendix.
[2021-07-16] MEDS ORDERED: CEFTRIAXONE 1000 MG/VIAL ONE (12:29)
--- NOTE | 2021-07-16 13:04 | ER ---
Nurse's Notes [facility] Name: Ernestina Messina Age: 31 yrs Sex: Female : 1990 Arrival Date: 07/16/2021 Time: 09:22 Bed 13 Private MD: Diagnosis: Abdominal tenderness;UTI/ Urinary tract infection, site not specified Presentation: 07/16 09:36 Chief complaint: Patient states: she started having abdominal cramping yesterday ap3 07/15/21, and believed it to be her period that was starting. Patient states she took some midol, but had no relief. When she woke up this morning her abdomen was distended and the pain had increased. Coronavirus screen: At this time, the client does not indicate any symptoms associated with coronavirus-19. Ebola Screen: No symptoms or risks identified at this time. Initial Sepsis Screen: Does the patient meet any 2 criteria? RR > 20 per min. No. Patient's initial sepsis screen is negative. Does the patient have a suspected source of infection? No. Patient's initial sepsis screen is negative. Risk Assessment: Do you want to hurt yourself or someone else? Patient reports no desire to harm self or others. Onset of symptoms was July 15, 2021. 09:36 Method Of Arrival: Ambulatory ap3 09:36 Acuity: VINI 3 ap3 Triage Assessment: 09:39 General: Appears uncomfortable, Behavior is restless. Pain: Complains of pain in ap3 abdomen Pain currently is 10 out of 10 on a pain scale. GI: Abdomen is distended, Last BM was July 15, 2021. Reports nausea, Patient currently denies diarrhea, vomiting. 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 - Social history:: Smoking status: Patient denies any tobacco usage or history of. - Family history:: not pertinent. Screenin:12 Abuse screen: Denies threats or abuse. Nutritional screening: No deficits noted. oh Tuberculosis screening: No symptoms or risk factors identified. Fall Risk None identified. Assessment: 11:12 GI: Reports lower abdominal pain, bloating, cramping, nausea. oh Vital Signs: 09:36 BP 116 / 83; Pulse 89; Resp 24; Temp 98.0; Pulse Ox 100% on R/A; Weight 68.04 kg; ap3 Height 5 ft. 2 in. (157.48 cm); Pain 10/10; 12:21 BP 100 / 62; Pulse 91; Resp 19; Pulse Ox 100% ; oh 09:36 Body Mass Index 27.44 (68.04 kg, 157.48 cm) ap3 ED Course: 09:22 Patient arrived in ED. mr 09:38 Triage completed. ap3 09:41 Eugene Gustafson MD is Attending Physician. sonam 10:18 CT Abd/Pelvis - IV Contrast Only In Process Unspecified. EDMS 10:20 Bernardino Brown, RN is Primary Nurse. oh 10:50 Inserted saline lock: 20 gauge in right antecubital area, using aseptic technique. oh Blood collected. 10:53 Basic Metabolic Panel Sent. 5 10:53 CBC with Diff Sent. mh5 10:53 Hepatic Function Sent. mh5 10:53 Lipase Sent. 5 10:53 Initial lab(s) drawn, by ED staff, sent to lab. Urine collected: clean catch specimen, 5 cloudy. 10:53 Patient has correct armband on for positive identification. Placed in gown. Bed in low mh5 position. Call light in reach. Side rails up X 1. Adult w/ patient. Warm blanket given. Pulse ox on. NIBP on. 13:19 IV discontinued, bleeding controlled, Pressure dressing applied. oh Administered Medications: 10:45 Drug: NS 0.9% 1000 ml Route: IV; Rate: 1 bolus; Site: right antecubital; oh 10:45 Drug: morphine 4 mg Route: IVP; Site: right antecubital; oh 10:45 Drug: Zofran (Ondansetron) 4 mg Route: IVP; Site: right antecubital; oh 10:45 Drug: Pepcid (famotidine) 20 mg Route: IVP; Site: right antecubital; oh 12:02 Drug: morphine 4 mg Route: IVP; Site: right antecubital; oh 12:02 Drug: Zofran (Ondansetron) 4 mg Route: IVP; Site: right antecubital; oh 12:02 Drug: Rocephin (cefTRIAXone) 1 grams Route: IV; Rate: per protocol; Site: right oh antecubital; 13:11 Drug: Cipro (ciprofloxacin) 500 mg Route: PO; oh Outcome: 13:03 Discharge ordered by MD. masters 13:19 Discharged to home oh 13:19 Condition: stable 13:19 Discharge instructions given to patient, Prescriptions given X 3. 13:19 Patient left the ED. oh Signatures: Dispatcher [employer] EDEugene Rankin MD MD cha Rivera, Mary mr BrayMagdalena mh5 Mary Cardenas, RN RN moises3 Bernardino Brown RN RN oh
--- NOTE | 2021-07-16 13:04 | EDPHYS ---
Physician Documentation [facility] Name: Ernestina Messina Age: 31 yrs Sex: Female : 1990 Arrival Date: 07/16/2021 Time: 09:22 Bed 13 Private MD: JAKE Physician Eugene Gustafson HPI: 07/16 10:19 This 31 yrs old Female presents to ER via Ambulatory with complaints of sonam Abdominal Pain, Abdominal Swelling. 10:19 The patient presents with abdominal pain abdominal distention. Onset: The sonam symptoms/episode began/occurred 1 day(s) ago. The symptoms do not radiate. Associated signs and symptoms: Pertinent negatives:. The symptoms are described as crampy. Modifying factors: The symptoms are alleviated by nothing, the symptoms are aggravated by nothing. Severity of pain: At its worst the pain was moderate in the emergency department the pain is unchanged. The patient has not experienced similar symptoms in the past. 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 - Social history:: Smoking status: Patient denies any tobacco usage or history of. - Family history:: not pertinent. ROS: 10:19 Constitutional: Negative for fever, chills, and weight loss, Eyes: Negative for injury, sonam pain, redness, and discharge, ENT: Negative for injury, pain, and discharge, Neck: Negative for injury, pain, and swelling, Cardiovascular: Negative for chest pain, palpitations, and edema, Respiratory: Negative for shortness of breath, cough, wheezing, and pleuritic chest pain, Back: Negative for injury and pain, : Negative for injury, bleeding, discharge, and swelling, MS/Extremity: Negative for injury and deformity, Skin: Negative for injury, rash, and discoloration, Neuro: Negative for headache, weakness, numbness, tingling, and seizure, Psych: Negative for depression, anxiety, suicide ideation, homicidal ideation, and hallucinations, Allergy/Immunology: Negative for hives, rash, and allergies, Endocrine: Negative for neck swelling, polydipsia, polyuria, polyphagia, and marked weight changes, Hematologic/Lymphatic: Negative for swollen nodes, abnormal bleeding, and unusual bruising. 10:19 Abdomen/GI: Positive for abdominal pain, abdominal cramps. Exam: 10:19 Constitutional: This is a well developed, well nourished patient who is awake, alert, sonam and in no acute distress. Head/Face: Normocephalic, atraumatic. Eyes: Pupils equal round and reactive to light, extra-ocular motions intact. Lids and lashes normal. Conjunctiva and sclera are non-icteric and not injected. Cornea within normal limits. Periorbital areas with no swelling, redness, or edema. ENT: Nares patent. No nasal discharge, no septal abnormalities noted. Tympanic membranes are normal and external auditory canals are clear. Oropharynx with no redness, swelling, or masses, exudates, or evidence of obstruction, uvula midline. Mucous membranes moist. Neck: Trachea midline, no thyromegaly or masses palpated, and no cervical lymphadenopathy. Supple, full range of motion without nuchal rigidity, or vertebral point tenderness. No Meningismus. Chest/axilla: Normal chest wall appearance and motion. Nontender with no deformity. No lesions are appreciated. Cardiovascular: Regular rate and rhythm with a normal S1 and S2. No gallops, murmurs, or rubs. Normal PMI, no JVD. No pulse deficits. Respiratory: Lungs have equal breath sounds bilaterally, clear to auscultation and percussion. No rales, rhonchi or wheezes noted. No increased work of breathing, no retractions or nasal flaring. Back: No spinal tenderness. No costovertebral tenderness. Full range of motion. Skin: Warm, dry with normal turgor. Normal color with no rashes, no lesions, and no evidence of cellulitis. MS/ Extremity: Pulses equal, no cyanosis. Neurovascular intact. Full, normal range of motion. Neuro: Awake and alert, GCS 15, oriented to person, place, time, and situation. Cranial nerves II-XII grossly intact. Motor strength 5/5 in all extremities. Sensory grossly intact. Cerebellar exam normal. Normal gait. Psych: Awake, alert, with orientation to person, place and time. Behavior, mood, and affect are within normal limits. 10:19 Abdomen/GI: Inspection: distension, Bowel sounds: normal, Palpation: moderate abdominal tenderness, in the right lower quadrant and left lower quadrant, Liver: no appreciated palpable abnormalities, Hernia: not appreciated. Vital Signs: 09:36 BP 116 / 83; Pulse 89; Resp 24; Temp 98.0; Pulse Ox 100% on R/A; Weight 68.04 kg; ap3 Height 5 ft. 2 in. (157.48 cm); Pain 10/10; 12:21 BP 100 / 62; Pulse 91; Resp 19; Pulse Ox 100% ; oh 09:36 Body Mass Index 27.44 (68.04 kg, 157.48 cm) ap3 MDM: 09:41 Patient medically screened. sonam 10:21 Differential diagnosis: cholecystitis, Cholelithiasis, Ectopic , non-specific sonam abd pain. Data reviewed: vital signs, nurses notes, lab test result(s), radiologic studies, CT scan. Data interpreted: bus monitor: rate is 89 beats/min, rhythm is regular, Pulse oximetry: on room air is 100 %. Counseling: I had a detailed discussion with the patient and/or guardian regarding: the historical points, exam findings, and any diagnostic results supporting the discharge/admit diagnosis, lab results, radiology results. 07/16 09:47 Order name: Basic Metabolic Panel; Complete Time: 11:35 sonam 07/16 09:47 Order name: CBC with Diff; Complete Time: 11:35 sonam 07/16 09:47 Order name: Hepatic Function; Complete Time: 11:35 sonam 07/16 09:47 Order name: Lipase; Complete Time: 11:35 sonam 07/16 09:47 Order name: Test, Serum; Complete Time: 12:17 sonam 07/16 10:10 Order name: Urine Dipstick-Ancillary; Complete Time: 11:35 EDMS 07/16 10:09 Order name: CT Abd/Pelvis - IV Contrast Only; Complete Time: 12:17 sonam 07/16 10:11 Order name: Urine --Ancillary (enter results); Complete Time: 11:35 bd 07/16 10:52 Order name: Urine Dipstick-Ancillary; Complete Time: 11:35 EDMS 07/16 09:47 Order name: IV Saline Lock; Complete Time: 10:53 sonam 07/16 09:47 Order name: Labs collected and sent; Complete Time: 10:53 [facility] 07/16 09:47 Order name: Urine Dipstick-Ancillary (obtain specimen); Complete Time: 10:12 [facility] 07/16 09:47 Order name: Urine Test (obtain specimen); Complete Time: 10:12 [facility] Administered Medications: 10:45 Drug: NS 0.9% 1000 ml Route: IV; Rate: 1 bolus; Site: right antecubital; oh 10:45 Drug: morphine 4 mg Route: IVP; Site: right antecubital; oh 10:45 Drug: Zofran (Ondansetron) 4 mg Route: IVP; Site: right antecubital; oh 10:45 Drug: Pepcid (famotidine) 20 mg Route: IVP; Site: right antecubital; oh 12:02 Drug: morphine 4 mg Route: IVP; Site: right antecubital; oh 12:02 Drug: Zofran (Ondansetron) 4 mg Route: IVP; Site: right antecubital; oh 12:02 Drug: Rocephin (cefTRIAXone) 1 grams Route: IV; Rate: per protocol; Site: right oh antecubital; 13:11 Drug: Cipro (ciprofloxacin) 500 mg Route: PO; oh Disposition Summary: 07/16/21 13:03 Discharge Ordered Location: Home [facility] Problem: new [facility] Symptoms: have improved sonam Condition: Stable [facility] Diagnosis - Abdominal tenderness sonam - UTI/ Urinary tract infection, site not specified sonam Followup: [facility] - With: Private Physician - When: 2 - 3 days - Reason: Recheck today's complaints, Continuance of care, Re-evaluation by your physician Discharge Instructions: - Discharge Summary Sheet sonam - Abdominal Pain, Adult sonam - Urinary Tract Infection, Adult sonam - Urinary Tract Infection, Adult, [id number] sonam - Abdominal Pain, Adult, [id number] [facility] Forms: - Medication Reconciliation Form [facility] - Thank You Letter [facility] - Antibiotic Education [facility] - Prescription Opioid Use [facility] Prescriptions: - Cipro 250 mg Oral Tablet - take 1 tablet by ORAL route every 12 hours; 14 tablet; Refills: 0, Product sonam Selection Permitted - Pepcid 20 mg Oral Tablet - take 1 tablet by ORAL route every 12 hours for 15 days; 30 tablet; Refills: 0, sonam Product Selection Permitted - dicyclomine 20 mg Oral Tablet - take 1 tablet by ORAL route 4 times per day; 28 tablet; Refills: 0, Product sonam Selection Permitted Signatures: Dispatcher [employer] Eugene Clay MD MD cha Prokisch, Amanda RN RN ap3 Bernardino Brown, RN RN oh
[2021-07-16 13:27] VITALS: TEMP 98; O2SAT 100
[2021-07-16 13:28] VITALS: BP 100/62
[2021-07-16] MEDS ORDERED: CIPROFLOXACIN HCL 500 MG TAB ONE (13:38)
== END 2021-07-16 13:19 | disposition home or self-care (01) ==
LOC: ER 09:17
DX: N39.0 Urinary tract infection, site not specified (principal)
CPT/HCPCS: 85025; 80048; 36415; 84703; 81025; 80076; 81003 ×2; 83690; 74177; 96375; 96374; 99284; Q9967; J7030; J2405 ×2

== ENCOUNTER 2022-10-29 10:53 | Emergency (ER) | payer SELFPAY ==
--- OUTSIDE RECORDS SUMMARY | 2022-10-29 10:56 | XMS REPORT | Continuity of Care Document ---
:1990 Author Organization [facility] t Address [address] [place] [address] Care Team Providers Name Role Phone Asked, No Pcp Primary Care Physician Unavailable KEYUR COOPER Attending Clinician Unavailable Payers Payer Name Policy Type Policy Number Effective Date Expiration Date S ource SELF-PAY CI [id number] Problems Condition Condition Condition Status Onset Resolution Last Treating Co mments Source Name Details Category Date Date Treatment Clinician Date Mastodynia Problem Active 2015-10-02 M emoria Mastodynia 04:04:23 l Active [place] Problem 10/02/2015 John Breast Breast Breast Diagnosis Active 2015-10-02 Me moria lump lump 04:04:23 l Active Eduardo Diagnosis 10/02/2015 John Breast Allergies, Adverse Reactions, Alerts This patient has no known allergies or adverse reactions. Social History Social Habit Start Date Stop Date Quantity Comments Source Mormon: 2015-09-08 2015-09-08 Dori Pisano nn 00:00:00 00:00:00 Sex Assigned At [address] [facility] [place] [place] 00:00:00 00:00:00 Smoking Status Start Date Stop Date Source Tobacco smoking consumption unknown [facility] [place] [place] Medications Ordered Filled Start Stop Current Ordering Indication Dosage Frequency Signature Comments Components Source Medication Medication Date Date Medication? Clinician (SIG) Name Name ibuprofen 2014-10 Yes Halie 1 tab Memor ia Dunellen l 03:56: Eduardo 42 Vital Signs Vital Name Observation Time Observation Value Comments Source Weight 2015-09-08 17:30:00 Dori Clark Heart Rate 2015-09-08 17:30:00 Dori Clark Diastolic (mm Hg) 2015-09-08 17:30:00 Mem orial Eduardo Systolic (mm Hg) 2015-09-08 17:30:00 Matthew rial Eduardo Procedures This patient has no known procedures. Plan of Care Planned Activity Planned Date Details Comments Source Future Scheduled 2022-09-27 COVID-[address] [facility] Test 18:37:28 (#1) [code = COVID-19 VACCINE (#1)] Future Scheduled 2022-09-27 [facility] 18:37:28 screening (procedure) [code = 404142121] Future Scheduled 2022-09-27 [facility] 18:37:28 malignant neoplasm of cervix (procedure) [code = 987757612] Future Scheduled 2022-09-27 [facility]ACCINE [facility] 18:37:28 [code = INFLUENZA VACCINE] Encounters Start End Encounter Admission Attending Care Care Encounter Source Date/Time Date/Time Type Type Clinicians Facility Department ID 2021-11-03 Outpatient IBNS IBNS [id number] 12:29:20 [id number] [facility] 2021-03-17 2021-03-17 Emergency KEYUR COOPER [facility] [id number] [place] 00:00:00 00:00:[address] 2019-11-11 2019-11-11 Emergency E [facility] [id number] [facility] 17:53:00 17:53:00 2015-09-24 2015-09-24 LT nullFlavo Dunellen [id number] Memoria 18:30:00 18:30:00 ultrasound r Breast [id number] l guided CareDICK [id number] Herm jose needle loc [id number] after anesthesia , LT needle loc lumpectomy 2015-09-24 2015-09-24 LT nullFlavo John [id number] Memoria 18:30:00 18:30:00 ultrasound r Breast [id number] l guided DICK Gunn [id number] Herm jose needle loc [id number] after anesthesia , LT needle loc lumpectomy 2015-09-24 2015-09-24 Outpatient Dunellen Dunellen [id number] 12:30:00 12:30:00 Breast Breast alWork s DICK Gunn PA 2015-09-08 2015-09-08 breast nullFlavo Dunellen [id number] [facility] 17:30:00 17:30:00 lump r Breast [id number] DICK Hardy [id number] [place] jose [id number] 2015-09-08 2015-09-08 breast nullFlavo Dunellen [id number] [facility] 17:30:00 17:30:00 lump r Breast [id number] DICK Hardy [id number] [place] jose [id number] 2015-09-08 2015-09-08 Outpatient John Dunellen [id number] [facility] 11:30:00 11:30:00 Breast Breast alWork s DICK Gunn PA Results This patient has no known results.
[2022-10-29 12:03] LABS: Urine Blood Negative (Negative); Urine Glucose Negative (Negative); Urine Protein Negative (Negative); Urine Specific Gravity 1.015 (1.005-1.030)
[2022-10-29] MEDS ORDERED: KETOROLAC 30 MG/ML INJ ONE (12:03)
[2022-10-29] MEDS ORDERED: NA CHLORIDE 0.9% 1,000 ML ONE (12:03)
[2022-10-29] MEDS ORDERED: ONDANSETRON 4 MG/2 ML VIAL ONE (12:03)
[2022-10-29 12:04] LABS: Absolute Lymphocytes (CBC) 1.7 K/uL (0.7-4.9); Hematocrit 39.2 % (36.0-45.0); MCV 82.4 fL (80-100); RBC Red Blood Cell Count 4.76 M/uL (3.86-4.86)
[2022-10-29 12:09] LABS: Urine Bacteria <20 /HPF (<20); Urine Mucus Slight /HPF (None Seen); Urine RBC <5 /HPF (None Seen)
[2022-10-29 12:17] LABS: Urine Specific Gravity/Preg 1.015 (1.005-1.030)
[2022-10-29 12:20] LABS: Albumin 3.8 g/dL (3.4-5.0); Bilirubin Total 0.3 mg/dL (0.2-1.0); Potassium 3.8 mmol/L (3.5-5.1); Protein, Total 7.3 g/dL (6.4-8.2)
--- NOTE | 2022-10-29 13:08 | RAD REPORT ---
EXAM DESCRIPTION: US - Abdomen Exam Limited - 10/29/2022 12:50 pm CLINICAL HISTORY: RUQ pain COMPARISON: Abdomen Pelvis W Contrast dated 07/16/2021 FINDINGS: The gallbladder demonstrates no gallstones. No pericholecystic fluid or gallbladder wall t hickening. The common bile duct is normal measuring 4 mm. The liver demonstrates no findings of intrahepatic biliary dilatation. IMPRESSION: Unremarkable examination. Negative for cholelithiasis or acute cholecystitis.
--- NOTE | 2022-10-29 13:41 | EDPHYS ---
Physician Documentation [facility] Name: Ernestina Messina Age: 32 yrs Sex: Female : 1990 Arrival Date: 10/29/2022 Time: 10:55 Bed 16 Private MD: ED Physician Sean Chacon HPI: 10/29 13:21 This 32 yrs old Female presents to ER via Ambulatory with complaints of rt Vomiting/Diarrhea, Abdominal Pain. 13:21 The patient presents to the emergency department with nausea, vomiting, abdominal pain. rt Patient presents to the ED with right upper quadrant pain starting at about 4. The patient states the pain is been constant but fluctuating in intensity. She has an associated nausea and vomiting with the pain gets worse. The patient reports having 1 episode of diarrhea. She has had the symptoms previously, not as intense. She never sought care for this previously. She denies other acute complaints at this time. Symptoms are moderate in severity, no other aggravating or alleviating factors. Pain is aching in nature, nonradiating.. 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 - Social history:: Smoking status: Patient denies any tobacco usage or history of. - Family history:: not pertinent. ROS: 13:21 Constitutional: Negative for fever, chills, and weight loss, Cardiovascular: Negative rt for chest pain, palpitations, and edema, Respiratory: Negative for shortness of breath, cough, wheezing, and pleuritic chest pain, MS/Extremity: Negative for injury and deformity, Skin: Negative for injury, rash, and discoloration, Neuro: Negative for headache, weakness, numbness, tingling, and seizure, Psych: Negative for depression, anxiety, suicide ideation, homicidal ideation, and hallucinations. 13:21 Abdomen/GI: Positive for abdominal pain, nausea, vomiting, and diarrhea. Exam: 13:21 Constitutional: This is a well developed, well nourished patient who is awake, alert, rt and in no acute distress. Head/Face: Normocephalic, atraumatic. Chest/axilla: Normal chest wall appearance and motion. Nontender with no deformity. No lesions are appreciated. Cardiovascular: Regular rate and rhythm with a normal S1 and S2. No gallops, murmurs, or rubs. Normal PMI, no JVD. No pulse deficits. Respiratory: Lungs have equal breath sounds bilaterally, clear to auscultation and percussion. No rales, rhonchi or wheezes noted. No increased work of breathing, no retractions or nasal flaring. Skin: Warm, dry with normal turgor. Normal color with no rashes, no lesions, and no evidence of cellulitis. MS/ Extremity: Pulses equal, no cyanosis. Neurovascular intact. Full, normal range of motion. Neuro: Awake and alert, GCS 15, oriented to person, place, time, and situation. Cranial nerves II-XII grossly intact. Motor strength 5/5 in all extremities. Sensory grossly intact. Cerebellar exam normal. Normal gait. Psych: Awake, alert, with orientation to person, place and time. Behavior, mood, and affect are within normal limits. 13:21 Abdomen/GI: Tenderness to the right upper quadrant, mild guarding, no rebound. Vital Signs: 11:04 BP 118 / 82; Pulse 100; Resp 16; Temp 99.2(TE); Pulse Ox 100% on R/A; Weight 81.65 kg; hb Height 5 ft. 2 in. (157.48 cm); Pain 8/10; 12:00 BP 99 / 53; Pulse 69; Resp 17; Pulse Ox 99% on R/A; kr3 12:58 BP 98 / 62; Pulse 66; Resp 17; Pulse Ox 99% on R/A; kr3 11:04 Body Mass Index 32.92 (81.65 kg, 157.48 cm) hb MDM: 11:16 Patient medically screened. rt 13:53 Differential diagnosis: Nonspecific abd pain, gastritis, cholecystitis, pancreatitis. rt Data reviewed: vital signs, nurses notes, lab test result(s), radiologic studies. Management of patient was discussed with the following: technician's helper. I considered the following discharge prescriptions or medication management in the emergency department Medications were administered in the Emergency Department. See MAR. Test considered but Not performed: CT: Discussed negative ultrasound, urinalysis, labs, offered CT scan, patient states that pain has resolved, shared decision making was utilized, will forego CT scan at this time, if pain worsens, patient will return for more imaging.. Response to treatment: the patient's symptoms have resolved after treatment. 10/29 11:25 Order name: CBC with Diff; Complete Time: 12:21 rt 10/29 11:25 Order name: CMP; Complete Time: 12:21 rt 10/29 11:25 Order name: Lipase; Complete Time: 12:21 rt 10/29 11:25 Order name: UA MICROSCOPIC; Complete Time: 12:21 rt 10/29 12:03 Order name: Urine Dipstick-Ancillary; Complete Time: 12:21 EDMS 10/29 12:11 Order name: Urine --Ancillary (enter results); Complete Time: 12:21 aa5 10/29 11:25 Order name: Urine Dipstick-Ancillary (obtain specimen); Complete Time: 12:05 rt 10/29 11:25 Order name: Urine Test (obtain specimen); Complete Time: 12:05 rt 10/29 11:25 Order name: US Abdomen Limited; Complete Time: 13:17 rt Administered Medications: 12:07 Drug: NS 0.9% 1000 ml Route: IV; Rate: 1 bolus; Site: left antecubital; kr3 14:08 Follow up: Response: No adverse reaction; IV Status: Completed infusion; IV Intake: kr3 1000ml 12:07 Drug: Zofran (Ondansetron) 4 mg Route: IVP; Site: left antecubital; kr3 14:08 Follow up: Response: No adverse reaction kr3 12:14 Drug: Ketorolac 30 mg Route: IVP; Site: left antecubital; kr3 14:08 Follow up: Response: No adverse reaction kr3 Disposition Summary: 10/29/22 13:40 Discharge Ordered Location: Home rt Problem: new rt Symptoms: are resolved rt Condition: Stable rt Diagnosis - Upper abdominal pain, unspecified rt Followup: rt - With: Private Physician - When: 2 - 3 days - Reason: Discharge Instructions: - Discharge Summary Sheet rt - Abdominal Pain, Adult rt Forms: - Medication Reconciliation Form rt - Thank You Letter rt - Work release form kr3 - Antibiotic Education rt - Prescription Opioid Use rt Prescriptions: - Ibuprofen 800 mg Oral Tablet - take 1 tablet by ORAL route every 8 hours As needed take with food; 30 tablet; rt Refills: 0, Product Selection Permitted Signatures: Dispatcher [employer] Mary Lou Martinez, RN RN hb Sera Munguia RN RN kr3 Sean Chacon MD MD rt
--- NOTE | 2022-10-29 13:41 | ER ---
Nurse's Notes [facility] Name: Ernestina Messina Age: 32 yrs Sex: Female : 1990 Arrival Date: 10/29/2022 Time: 10:55 Bed 16 Private MD: Diagnosis: Upper abdominal pain, unspecified Presentation: 10/29 11:04 Chief complaint: N/V/D and upper abdominal pain since 0400 today. Coronavirus screen: hb Client presents with at least one sign or symptom that may indicate coronavirus-19. Provider contacted for isolation considerations. Ebola Screen: No symptoms or risks identified at this time. Initial Sepsis Screen: Does the patient meet any 2 criteria? No. Patient's initial sepsis screen is negative. Does the patient have a suspected source of infection? No. Patient's initial sepsis screen is negative. Risk Assessment: Do you want to hurt yourself or someone else? Patient reports no desire to harm self or others. Onset of symptoms was October 29, 2022. 11:04 Method Of Arrival: Ambulatory 11:04 Acuity: VINI 3 hb Triage Assessment: 14:06 General: Appears in no apparent distress. comfortable, Behavior is calm, cooperative, kr3 appropriate for age. Pain: Denies pain. 14:06 GI: Reports upper abdominal pain. 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 - Social history:: Smoking status: Patient denies any tobacco usage or history of. - Family history:: not pertinent. Screenin:05 [facility] ED Fall Risk Assessment (Adult) History of falling in the last 3 months, kr3 including since admission No falls in past 3 months (0 pts) Confusion or Disorientation No (0 pts) Intoxicated or Sedated No (0 pts) Impaired Gait No (0 pts) Mobility Assist Device Used No (0 pt) Altered Elimination No (0 pt) Score/Fall Risk Level 0 - 2 = Low Risk. Abuse screen: Denies threats or abuse. Nutritional screening: No deficits noted. Tuberculosis screening: No symptoms or risk factors identified. Assessment: 11:30 Reassessment: see triage note. kr3 12:58 Reassessment: Patient appears in no apparent distress at this time. Patient and/or kr3 family updated on plan of care and expected duration. Pain level reassessed. Patient is alert, oriented x 3, equal unlabored respirations, skin warm/dry/pink. 13:16 Reassessment: patient states "The pain is better my stomach is just burning a little kr3 now". 14:06 GI: kr3 Vital Signs: 11:04 BP 118 / 82; Pulse 100; Resp 16; Temp 99.2(TE); Pulse Ox 100% on R/A; Weight 81.65 kg; hb Height 5 ft. 2 in. (157.48 cm); Pain 8/10; 12:00 BP 99 / 53; Pulse 69; Resp 17; Pulse Ox 99% on R/A; kr3 12:58 BP 98 / 62; Pulse 66; Resp 17; Pulse Ox 99% on R/A; kr3 11:04 Body Mass Index 32.92 (81.65 kg, 157.48 cm) hb ED Course: 10:55 Patient arrived in ED. rg4 11:06 Triage completed. hb 11:06 Arm band placed on. hb 11:07 Sera Munguia, BUFFY is Primary Nurse. kr3 11:13 Sean Chacon MD is Attending Physician. rt 12:05 UA MICROSCOPIC Sent. bc6 12:05 Lipase Sent. bc6 12:05 CMP Sent. bc6 12:05 CBC with Diff Sent. bc6 12:05 Initial lab(s) drawn, by wy, sent to lab. Urine collected: clean catch specimen. bc6 Inserted saline lock: 20 gauge in left antecubital area, using aseptic technique. 12:52 US Abdomen Limited In Process Unspecified. EDMS 14:06 Bed in low position. Call light in reach. Side rails up X 1. kr3 14:06 No provider procedures requiring assistance completed. IV discontinued, intact, kr3 bleeding controlled, No redness/swelling at site. Pressure dressing applied. Administered Medications: 12:07 Drug: NS 0.9% 1000 ml Route: IV; Rate: 1 bolus; Site: left antecubital; kr3 14:08 Follow up: Response: No adverse reaction; IV Status: Completed infusion; IV Intake: kr3 1000ml 12:07 Drug: Zofran (Ondansetron) 4 mg Route: IVP; Site: left antecubital; kr3 14:08 Follow up: Response: No adverse reaction kr3 12:14 Drug: Ketorolac 30 mg Route: IVP; Site: left antecubital; kr3 14:08 Follow up: Response: No adverse reaction kr3 Medication: 14:07 VIS not applicable for this client. kr3 Intake: 14:08 IV: 1000ml; Total: 1000ml. kr3 Outcome: 13:40 Discharge ordered by . rt 14:04 Patient left the ED. kr3 14:05 Discharged to home ambulatory. kr3 14:05 Condition: stable 14:05 Discharge instructions given to patient, Instructed on discharge instructions, follow up and referral plans. medication usage, Demonstrated understanding of instructions, follow-up care, medications, Prescriptions given X 1. Signatures: Dispatcher [employer] EDMS Mary Lou Evans RN RN hb Garcia, Rubi rg4 Sera Munguia RN RN kr3 Sean Chacon MD MD rt Leonela Forman 6 Corrections: (The following items were deleted from the chart) 12:57 12:56 Reassessment: see triage note kr3 kr3
[2022-10-29 14:17] VITALS: TEMP 99.2
[2022-10-29 14:23] VITALS: O2SAT 99
[2022-10-29 14:28] VITALS: BP 98/62
== END 2022-10-29 14:04 | disposition home or self-care (01) ==
LOC: ER 10:53
DX: R10.11 Right upper quadrant pain (principal); R11.2 Nausea with vomiting, unspecified
CPT/HCPCS: 36415; 76705; 80053; 81003; 81015; 81025; 83690; 85025; 96361; 96374; 96375; 99284; J2405; J7030

== ENCOUNTER 2023-05-06 06:17 | Emergency (ER) | payer OTHER, SELFPAY ==
--- OUTSIDE RECORDS SUMMARY | 2023-05-06 06:20 | XMS REPORT | Continuity of Care Document ---
:1990 Author Organization [facility] t Address [address] [place] [address] Care Team Providers Name Role Phone Asked, No Pcp Primary Care Physician Unavailable KEYUR COOPER Attending Clinician Unavailable Payers Payer Name Policy Type Policy Number Effective Date Expiration Date S ource SELF-PAY CI [id number] Problems Condition Condition Condition Status Onset Resolution Last Treating Co mments Source Name Details Category Date Date Treatment Clinician Date Mastodynia Problem Active 2015-10-02 M emoria Mastodynia 04:04:23 l Active Eduardo Problem 10/02/2015 John Breast Breast Breast Diagnosis Active 2015-10-02 Me moria lump lump 04:04:23 l Active Eduardo Diagnosis 10/02/2015 John Breast Allergies, Adverse Reactions, Alerts Allergy Allergy Status Severity Reaction(s) Onset Inactive Treating Comm ents Source Name Type Date Date Clinician N.K.D.A. N.K.D.A. Active Info Not 2014-10 Matthew ayesha Available 2-07 l 00:00: Social History Social Habit Start Date Stop Date Quantity Comments Source Gender identity [facility] History of Social 2021-03-17 2021-03-17 [facility] function 00:00:00 00:00:00 Sikhism: 2015-09-08 2015-09-08 [facility] 00:00:00 00:00:00 Sex Assigned At [birth year] [facility] 00:00:00 00:00:00 Smoking Status Start Date Stop Date Source Tobacco smoking consumption unknown [facility] Medications Ordered Filled Start Stop Current Ordering Indication Dosage Frequency Signature Comments Components Source Medication Medication Date Date Medication? Clinician (SIG) Name Name ibuprofen 2014-10 Yes Halie 1 tab Memor ia 2-31 Patrick l 03:56: Eduardo 42 ibuprofen 2014-10 Yes Halie 1 tab Memor ia 2-31 John l 03:56: Aurora 42 Vital Signs Vital Name Observation Time Observation Value Comments Source Diastolic (mm Hg) 2015-09-08 17:30:00 Mem orial [facility] Systolic (mm Hg) 2015-09-08 17:30:00 Matthew rial [facility] Weight 2015-09-08 17:30:00 [facility] Heart Rate 2015-09-08 17:30:00 [facility] Procedures This patient has no known procedures. Plan of Care Planned Activity Planned Date Details Comments Source Future Scheduled 2023-03-21 [facility]FLUENZA VACCINE [facility] Test 03:55:27 [code = INFLUENZA VACCINE] Future Scheduled 2023-03-21 COVID-19 [facility] Test 03:55:27 (#1) [code = COVID-19 VACCINE (#1)] Future Scheduled 2023-03-21 [facility] Test 03:55:27 screening (procedure) [code = 198983223] Future Scheduled 2023-03-21 Screening for [facility] Test 03:55:27 malignant neoplasm of cervix (procedure) [code = 975006793] Future Scheduled 2022-09-27 COVID-19 [facility]ACCINE [facility] Test 18:37:28 (#1) [code = COVID-19 VACCINE (#1)] Future Scheduled 2022-09-27 [facility] Test 18:37:28 screening (procedure) [code = 488586466] Future Scheduled 2022-09-27 Screening for [facility] Test 18:37:28 malignant neoplasm of cervix (procedure) [code = 938351110] Future Scheduled 2022-09-27 [facility]ZA VACCINE [facility] Test 18:37:28 [code = INFLUENZA VACCINE] Encounters Start End Encounter Admission Attending Care Care Encounter Source Date/Time Date/Time Type Type Clinicians Facility Department ID 2021-11-03 Outpatient IBNS IBNS [id number] 12:29:20 [id number] Marcel 2023-05-05 2023-05-05 Outpatient SFA SFA [id number] [place] 16:52:38 16:52:38 [id number] F Jerry 2021-03-17 2021-03-17 Emergency KEYUR COOPER [facility] [id number] [place] 00:00:00 00:00:[address] 2019-11-11 2019-11-11 Emergency E [facility] [id number] [facility] 17:53:00 17:53:00 2015-09-24 2015-09-24 LT nullFlavo John [id number] 18-2 Memoria 18:30:00 18:30:00 ultrasound r Breast [id number] l guided Care, PA [id number] Herm jose needle loc eeee80 after anesthesia , LT needle loc lumpectomy 2015-09-24 2015-09-24 LT nullFlavo Patrick [id number] 2c-5 Memoria 18:30:00 18:30:00 ultrasound r Breast [id number] l guided Care, PA [id number] Herm jose needle loc 08eae9 after anesthesia , LT needle loc lumpectomy 2015-09-24 2015-09-24 LT nullFlavo Patrick [id number] 2c-5 Memoria 18:30:00 18:30:00 ultrasound r Breast [id number] l guided Care, PA [id number] Herm jose needle loc 08eae9 after anesthesia , LT needle loc lumpectomy 2015-09-24 2015-09-24 LT nullFlavo Patrick [id number] 18-2 Memoria 18:30:00 18:30:00 ultrasound r Breast [id number] l guided Care, PA [id number] Herm jose needle loc eeee80 after anesthesia , LT needle loc lumpectomy 2015-09-24 2015-09-24 Outpatient John John [id number] 12:30:00 12:30:00 Breast Breast alWork s Care, DICK oFster 2015-09-08 2015-09-08 breast nullFlavo Patrick [id number] 60-0 Memoria 17:30:00 17:30:00 lump r Breast [id number] l Care, PA [id number] Herm jose [id number] 2015-09-08 2015-09-08 breast nullFlavo Patrick [id number] 5c-9 Memoria 17:30:00 17:30:00 lump r Breast [id number] l Velia PA [id number] Valencia garcia ac0ff9 2015-09-08 2015-09-08 breast nullFlavo John [id number] 5c-9 Memoria 17:30:00 17:30:00 lump r Breast [id number]-4734-a DICK Hardy [id number] Valencia garcia ac0ff9 2015-09-08 2015-09-08 breast nullFlavo Patrick [id number] 60-0 Memoria 17:30:00 17:30:00 lump r Breast [id number] DICK Hardy [id number] Valencia garcia [id number] 2015-09-08 2015-09-08 Outpatient Patrickjolene Lopez [id number] [facility] 11:30:00 11:30:00 Breast Breast alWork s Velia PA Velia PA Results This patient has no known results.
[2023-05-06 06:50] LABS: Lymphocytes % 19.6 % (15.3-44.8); MCV 81.9 fL (80-100); RBC Red Blood Cell Count 4.88 M/uL (3.86-4.86)
[2023-05-06] MEDS ORDERED: MAGNES/ALUMIN/SIMET 30ML UCUP ONE (06:54)
[2023-05-06] MEDS ORDERED: NA CHLORIDE 0.9% 1,000 ML ONE (06:54)
[2023-05-06] MEDS ORDERED: FAMOTIDINE 20 MG/2 ML VIAL IV ONE (06:55)
[2023-05-06 06:57] LABS: Protime INR 1.08
[2023-05-06 07:10] LABS: ALT/SGPT 52 U/L (13-56); AST/SGOT 19 U/L (15-37); Albumin 3.7 g/dL (3.4-5.0); Alkaline Phosphatase 90 U/L (45-117); BUN Blood Urea Nitrogen 11 mg/dL (7-18); Bicarbonate 25 mEq/L (21-32); Bilirubin Direct 0.2 mg/dL (0-0.2); Bilirubin Indirect, Calculated 0.4 mg/dL (0.2-0.8); Bilirubin Total 0.6 mg/dL (0.2-1.0); Glomerular Filtration Rate 117 ml/min (=/>90); Glucose Level 100 mg/dL (74-106); Lipase 57 U/L (13-75); Magnesium 1.9 mg/dL (1.6-2.4); NT PRO-BNP 18 pg/mL (<125); Potassium 3.8 mEq/L (3.5-5.1); Protein, Total 7.5 g/dL (6.4-8.2); Sodium Level 138 mEq/L (136-145)
[2023-05-06 07:11] LABS: Troponin High Sensitivity < 3.0 pg/mL (<58.9)
[2023-05-06 07:42] LABS: Barbiturates NEGATIVE (NEGATIVE); Benzodiazepines NEGATIVE (NEGATIVE); Cocaine NEGATIVE (NEGATIVE); METHAMPHETAM NEGATIVE (NEGATIVE); Methadone NEGATIVE (NEGATIVE); Opiates NEGATIVE (NEGATIVE); Phencyclidine NEGATIVE (NEGATIVE); THC Cannibis NEGATIVE (NEGATIVE)
--- NOTE | 2023-05-06 07:48 | RAD REPORT ---
EXAM DESCRIPTION: RAD - Chest Single View - 05/06/2023 6:45 am CLINICAL HISTORY: CHEST PAIN Chest pain. COMPARISON: ABDOMEN 1 VIEW KUB dated 07/28/2014; CHEST SINGLE VIEW dated 04/02/2013 FINDINGS: Portable technique limits examination quality. The lungs are grossly clear. The heart is normal in size. No displaced fractures. IMPRESSION: No acute intrathoracic process suspected.
[2023-05-06] MEDS ORDERED: KETOROLAC 30 MG/ML INJ ONE (08:00)
--- NOTE | 2023-05-06 08:13 | RAD REPORT ---
EXAM DESCRIPTION: CT - Chest For Pe Angio - 05/06/2023 8:01 am CLINICAL HISTORY: Chest pain. CHEST PAIN COMPARISON: CTANGIO CHEST FOR PE dated 04/02/2013 TECHNIQUE: CT angiogram of the pulmonary arteries was performed with MIP. All CT scans are performed using dose optimization technique as appropriate and may include automated exposure control or mA/KV adjustment according to patient size. FINDINGS: No evidence of pulmonary thromboembolism. No acute aortic finding demonstrated. The lungs are clear. No significant pericardial or pleural fluid. No concerning bony finding. IMPRESSION: No evidence of pulmonary thromboembolism. No acute lung findings.
--- NOTE | 2023-05-06 08:41 | ER ---
Nurse's Notes [facility] Name: Ernestina Messina Age: 32 yrs Sex: Female : 1990 Arrival Date: 05/06/2023 Time: 06:17 Bed 8 Private MD: Diagnosis: Chest pain, unspecified;Functional dyspepsia Presentation: 05/06 06:20 Chief complaint: Chief complaint: Patient states: substernal chest pain,onset 3 days, pf1 worse this AM at 0400 that radiated to throat. Patient stated it feels like a knot to throat. 06:20 Coronavirus screen: Vaccine status: Patient reports being unvaccinated. Client denies pf1 travel out of the [place] in the last 14 days. At this time, the client does not indicate any symptoms associated with coronavirus-19. Ebola Screen: Patient negative for fever greater than or equal to 101.5 degrees Fahrenheit, and additional compatible Ebola Virus Disease symptoms. Initial Sepsis Screen: Does the patient meet any 2 criteria? HR > 90 bpm. No. Patient's initial sepsis screen is negative. Does the patient have a suspected source of infection? No. Patient's initial sepsis screen is negative. Risk Assessment: Do you want to hurt yourself or someone else? Patient reports no desire to harm self or others. 06:20 Method Of Arrival: Ambulatory pf1 06:20 Acuity: VINI 2 pf1 07:09 Onset of symptoms was May 06, 2023. kd3 Triage Assessment: 07:09 General: Appears uncomfortable, Behavior is anxious. Pain: Complains of pain in kd3 epigastric area and xiphoid area and neck. Neuro: Level of Consciousness is awake, alert, obeys commands, Oriented to person, place, time, situation. Cardiovascular: Patient's skin is warm and dry. Respiratory: Airway is patent Trachea midline Respiratory effort is even, unlabored, Respiratory pattern is regular, symmetrical. Historical: - Allergies: 06:45 No Known Allergies; pf1 - PMHx: 06:45 Anxiety; Depression; Hypothyroidism; pf1 - PSHx: 06:45 cyst removed from left breast; pf1 - Immunization history:: Adult Immunizations up to date, Client reports having NOT received the Covid vaccine. Last tetanus immunization: > 10 years ago Flu vaccine is not up to date. - Social history:: Smoking status: Patient denies any tobacco usage or history of. Patient/guardian denies using alcohol, street drugs. - Family history:: not pertinent. Screenin:08 [facility] ED Fall Risk Assessment (Adult) History of falling in the last 3 months, kd3 including since admission No falls in past 3 months (0 pts) Confusion or Disorientation No (0 pts) Intoxicated or Sedated No (0 pts) Impaired Gait No (0 pts) Mobility Assist Device Used No (0 pt) Altered Elimination No (0 pt) Score/Fall Risk Level 0 - 2 = Low Risk Maintained a safe environment. Abuse screen: Denies threats or abuse. Denies injuries from another. Nutritional screening: No deficits noted. Tuberculosis screening: No symptoms or risk factors identified. Assessment: 06:36 General: Pt states that she had gotten a weight loss medication in [place] and since she kd3 had started taking it, she feels like her symptoms had started and had progressively gotten worse. . Pain: Complains of pain in chest Pain radiates to neck Pain began gradually. Neuro: Level of Consciousness is awake, alert, obeys commands, Oriented to person, place, time, situation. Cardiovascular: Patient's skin is warm and dry. Respiratory: Airway is patent Trachea midline Respiratory effort is even, unlabored, Respiratory pattern is regular, symmetrical. 07:52 Reassessment: No changes from previously documented assessment. Patient and/or family ko1 updated on plan of care and expected duration. Pain level reassessed. Patient is alert, oriented x 3, equal unlabored respirations, skin warm/dry/pink. Vital Signs: 06:20 Weight 63.05 kg; Height 5 ft. 2 in. ; pf1 06:35 Pulse 102; Resp 16; Temp 98.2(TE); Pulse Ox 100% ; kd3 06:37 BP 111 / 72; kd3 07:08 BP 108 / 80; Pulse 86; Resp 16; Pulse Ox 100% on R/A; kd3 07:53 BP 111 / 71; Pulse 85; Resp 16; Temp 98.5; Pulse Ox 100% ; Pain 10/10; dd1 06:20 Body Mass Index 25.42 (63.05 kg, 157.48 cm) pf1 07:53 Pain Scale: Adult dd1 ED Course: 06:17 Patient arrived in ED. am2 06:24 Emily Anderson, RN is Primary Nurse. kd3 06:27 Eugene Gustafson MD is Attending Physician. sonam 06:30 Inserted saline lock: 20 gauge in left antecubital area, using aseptic technique. Blood kd3 collected. 06:38 Basic Metabolic Panel Sent. kd3 06:38 CBC with Diff Sent. kd3 06:38 LFT's Sent. kd3 06:38 Magnesium Sent. kd3 06:38 NT PRO-BNP Sent. kd3 06:38 PT-INR Sent. kd3 06:38 Troponin HS Sent. kd3 06:38 Lipase Sent. kd3 06:44 Triage completed. pf1 06:47 XRAY Chest (1 view) In Process Unspecified. EDMS 07:09 Arm band placed on right wrist. kd3 07:09 Patient has correct armband on for positive identification. Placed in gown. Bed in low kd3 position. Side rails up X 1. Provided Education on: . Client placed on continuous cardiac and pulse oximetry monitoring. NIBP monitoring applied. laboratory technical specialist on. 07:10 Patient maintains SpO2 saturation greater than 95% on room air. kd3 07:27 Attending Physician role handed off by Eugene Gustafson MD rt 07:27 Sean Chacon MD is Attending Physician. rt 07:30 US Abdomen Limited In Process Unspecified. EDMS 08:03 CT Chest For PE Angio In Process Unspecified. EDMS 08:40 Pam Anne MD is Referral Physician. rt 08:49 No provider procedures requiring assistance completed. IV discontinued, intact, dd1 bleeding controlled, No redness/swelling at site. Pressure dressing applied. Administered Medications: 06:50 Drug: Alum-Mag Hydroxide-Simeth PO Suspension (200 mg-200 mg-20 mg/5 mL) 30 ml Route: kd3 PO; 06:57 Drug: NS 0.9% IV 1000 ml Route: IV; Rate: 1 bolus; Site: left antecubital; kd3 08:49 Follow up: Response: No adverse reaction; IV Status: Completed infusion; IV Intake: dd1 1000ml 06:57 Drug: Famotidine IVP 20 mg Route: IVP; Site: left antecubital; kd3 07:52 Drug: Ketorolac IVP 15 mg Route: IVP; Site: left antecubital; dd1 Medication: 07:10 VIS not applicable for this client. kd3 Intake: 08:49 IV: 1000ml; Total: 1000ml. dd1 Outcome: 08:40 Discharge ordered by . rt 08:49 Discharged to home ambulatory. dd1 08:49 Condition: good 08:49 Discharge instructions given to patient, Instructed on discharge instructions, follow up and referral plans. medication usage, Demonstrated understanding of instructions, follow-up care, medications, Prescriptions given X 1. 08:50 Patient left the ED. dd1 Signatures: Dispatcher [employer] EDMS Eugene Gustafson MD MD cha Moreno, Amanda am2 Emily Anderson RN RN kd3 Ana Maria Pugh RN RN ko1 Sean Chacon MD MD rt Emma Pierre RN RN pf1 Delio Smith, RN RN dd1 Corrections: (The following items were deleted from the chart) 06:44 06:42 Chief complaint: pf1 pf1
--- NOTE | 2023-05-06 08:41 | EDPHYS ---
Physician Documentation [facility] Name: Ernestina Messina Age: 32 yrs Sex: Female : 1990 Arrival Date: 05/06/2023 Time: 06:17 Bed 8 Private MD: ED Physician Sean Chacon HPI: 05/06 06:41 This 32 yrs old Female presents to ER via Unassigned with complaints of Chest sonam Pain, Chest Tightness, knot in throat feeling. 06:41 The patient or guardian reports chest pain that is located primarily in the anterior [facility] chest wall, bilaterally. The pain does not radiate. Associated signs and symptoms: Pertinent positives: nausea. The chest pain is described as dull. Duration: The patient or guardian reports a single episode. Modifying factors: The symptoms are alleviated by nothing. the symptoms are aggravated by nothing. Severity of pain: At its worst the pain was mild moderate in the emergency department the pain is unchanged. The patient has not experienced similar symptoms in the past. Historical: - Allergies: 06:45 No Known Allergies; pf1 - PMHx: 06:45 Anxiety; Depression; Hypothyroidism; pf1 - PSHx: 06:45 cyst removed from left breast; pf1 - Immunization history:: Adult Immunizations up to date, Client reports having NOT received the Covid vaccine. Last tetanus immunization: > 10 years ago Flu vaccine is not up to date. - Social history:: Smoking status: Patient denies any tobacco usage or history of. Patient/guardian denies using alcohol, street drugs. - Family history:: not pertinent. ROS: 06:42 Constitutional: Negative for fever, chills, and weight loss, Eyes: Negative for injury, sonam pain, redness, and discharge, ENT: Negative for injury, pain, and discharge, Neck: Negative for injury, pain, and swelling, Respiratory: Negative for shortness of breath, cough, wheezing, and pleuritic chest pain, Back: Negative for injury and pain, : Negative for injury, bleeding, discharge, and swelling, MS/Extremity: Negative for injury and deformity, Skin: Negative for injury, rash, and discoloration, Neuro: Negative for headache, weakness, numbness, tingling, and seizure, Psych: Negative for depression, anxiety, suicide ideation, homicidal ideation, and hallucinations, Allergy/Immunology: Negative for hives, rash, and allergies, Endocrine: Negative for neck swelling, polydipsia, polyuria, polyphagia, and marked weight changes, Hematologic/Lymphatic: Negative for swollen nodes, abnormal bleeding, and unusual bruising. 06:42 Cardiovascular: Positive for chest pain, of the xiphoid area. 06:42 Abdomen/GI: Positive for abdominal pain, of the epigastric area, right upper quadrant and left upper quadrant. Exam: 06:42 Constitutional: This is a well developed, well nourished patient who is awake, alert, sonam and in no acute distress. Head/Face: Normocephalic, atraumatic. Eyes: Pupils equal round and reactive to light, extra-ocular motions intact. Lids and lashes normal. Conjunctiva and sclera are non-icteric and not injected. Cornea within normal limits. Periorbital areas with no swelling, redness, or edema. ENT: Nares patent. No nasal discharge, no septal abnormalities noted. Tympanic membranes are normal and external auditory canals are clear. Oropharynx with no redness, swelling, or masses, exudates, or evidence of obstruction, uvula midline. Mucous membranes moist. Neck: Trachea midline, no thyromegaly or masses palpated, and no cervical lymphadenopathy. Supple, full range of motion without nuchal rigidity, or vertebral point tenderness. No Meningismus. Chest/axilla: Normal chest wall appearance and motion. Nontender with no deformity. No lesions are appreciated. Cardiovascular: Regular rate and rhythm with a normal S1 and S2. No gallops, murmurs, or rubs. Normal PMI, no JVD. No pulse deficits. Respiratory: Lungs have equal breath sounds bilaterally, clear to auscultation and percussion. No rales, rhonchi or wheezes noted. No increased work of breathing, no retractions or nasal flaring. Back: No spinal tenderness. No costovertebral tenderness. Full range of motion. Skin: Warm, dry with normal turgor. Normal color with no rashes, no lesions, and no evidence of cellulitis. MS/ Extremity: Pulses equal, no cyanosis. Neurovascular intact. Full, normal range of motion. Neuro: Awake and alert, GCS 15, oriented to person, place, time, and situation. Cranial nerves II-XII grossly intact. Motor strength 5/5 in all extremities. Sensory grossly intact. Cerebellar exam normal. Normal gait. Psych: Awake, alert, with orientation to person, place and time. Behavior, mood, and affect are within normal limits. 06:42 Abdomen/GI: Inspection: abdomen appears normal, Bowel sounds: normal, Palpation: abdomen is soft and non-tender, in all quadrants, Liver: no appreciated palpable abnormalities, Hernia: not appreciated. 06:44 Musculoskeletal/extremity: DVT Exam: No signs of deep vein thrombosis. no pain, no sonam swelling, no tenderness, negative Homans' sign noted on exam, no appreciated bluish discoloration, no erythema, no increased warmth. 06:55 ECG was reviewed by the Attending Physician. [facility] Vital Signs: 06:20 Weight 63.05 kg; Height 5 ft. 2 in. ; pf1 06:35 Pulse 102; Resp 16; Temp 98.2(TE); Pulse Ox 100% ; kd3 06:37 BP 111 / 72; kd3 07:08 BP 108 / 80; Pulse 86; Resp 16; Pulse Ox 100% on R/A; kd3 07:53 BP 111 / 71; Pulse 85; Resp 16; Temp 98.5; Pulse Ox 100% ; Pain 10/10; dd1 06:20 Body Mass Index 25.42 (63.05 kg, 157.48 cm) pf1 07:53 Pain Scale: Adult dd1 MDM: 06:27 Patient medically screened. sonam 06:44 Differential diagnosis: abnormal EKG, acute myocardial infarction, acute pericarditis, sonam anxiety, chest wall pain, cholecystitis, Cholelithiasis esophagitis, pancreatitis, peptic ulcer disease, pulmonary embolus, unstable angina, bowel obstruction. HEART Score: History: Slightly Suspicious (0), ECG: Normal (0), Age: < or = 45 years (0), Risk Factors: No Risk Factors Known (0), Troponin: < or = 1 x Normal Limit (0). ALEXEI Risk Score: TOTAL SCORE = 0. Data reviewed: vital signs, nurses notes, lab test result(s), EKG, radiologic studies, plain films. Consideration of Admission/Observation Escalation of care including admission/observation considered. I considered the following discharge prescriptions or medication management in the emergency department Medications were administered in the Emergency Department. See MAR. Independent interpretation of the following test(s) in the Emergency Department EKG: See my EKG interpretation above. Test considered but Not performed: Ultrasound no echo. Care significantly affected by the following chronic conditions: hypothyroid, anxiety,depression. 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 08:42 ED course: Symptoms significantly improving with Toradol, suspected chest wall pain. CT rt scan is negative for pulmonary embolism. No leg pain to suggest DVT. 05/06 06:33 Order name: Basic Metabolic Panel; Complete Time: 07:12 sonam 05/06 06:33 Order name: CBC with Diff; Complete Time: 07:12 sonam 05/06 06:33 Order name: LFT's; Complete Time: 07:12 sonam 05/06 06:33 Order name: Magnesium; Complete Time: 07:12 sonam 05/06 06:33 Order name: NT PRO-BNP; Complete Time: 07:12 sonam 05/06 06:33 Order name: PT-INR; Complete Time: 07:12 sonam 05/06 06:33 Order name: Troponin HS; Complete Time: 07:12 sonam 05/06 06:33 Order name: Lipase; Complete Time: 07:12 sonam 05/06 06:33 Order name: UDS; Complete Time: 07:43 sonam 05/06 06:37 Order name: D-Dimer; Complete Time: 07:43 sonam 05/06 06:33 Order name: XRAY Chest (1 view); Complete Time: 08:40 sonam 05/06 06:37 Order name: US Abdomen Limited; Complete Time: 08:45 sonam 05/06 07:48 Order name: CT Chest For PE Angio; Complete Time: 08:40 rt 05/06 06:33 Order name: EKG; Complete Time: 06:34 sonam 05/06 06:33 Order name: Cardiac monitoring; Complete Time: 06:38 sonam 05/06 06:33 Order name: EKG - Nurse/Tech; Complete Time: 06:38 sonam 05/06 06:33 Order name: IV Saline Lock; Complete Time: 06:38 sonam 05/06 06:33 Order name: Labs collected and sent; Complete Time: 06:38 sonam 05/06 06:33 Order name: O2 Per Protocol; Complete Time: 06:38 sonam 05/06 06:33 Order name: O2 Sat Monitoring; Complete Time: 06:38 sonam EC:55 Rate is 86 beats/min. Rhythm is regular. QRS Blum is Normal. IN interval is normal. QRS sonam interval is normal. QT interval is normal. No Q waves. T waves are Normal. No ST changes noted. Clinical impression: NSR w/ Non-specific ST/T Changes and No evidence of ischemia. Interpreted by me. Reviewed by me. Administered Medications: 06:50 Drug: Alum-Mag Hydroxide-Simeth PO Suspension (200 mg-200 mg-20 mg/5 mL) 30 ml Route: kd3 PO; 06:57 Drug: NS 0.9% IV 1000 ml Route: IV; Rate: 1 bolus; Site: left antecubital; kd3 08:49 Follow up: Response: No adverse reaction; IV Status: Completed infusion; IV Intake: dd1 1000ml 06:57 Drug: Famotidine IVP 20 mg Route: IVP; Site: left antecubital; kd3 07:52 Drug: Ketorolac IVP 15 mg Route: IVP; Site: left antecubital; dd1 Disposition Summary: 05/06/23 08:40 Discharge Ordered Location: Home rt Problem: new rt Symptoms: have improved rt Condition: Stable rt Diagnosis - Chest pain, unspecified rt - Functional dyspepsia rt Followup: sonam - With: Private Physician - When: 2 - 3 days - Reason: Recheck today's complaints, Continuance of care, Re-evaluation by your physician Followup: sonam - With: - When: 2 - 3 days - Reason: Recheck today's complaints, Continuance of care, Re-evaluation by your physician Discharge Instructions: - Discharge Summary Sheet sonam - Nonspecific Chest Pain, Adult snoam - Indigestion sonam Forms: - Medication Reconciliation Form rt - Thank You Letter rt - Antibiotic Education rt - Prescription Opioid Use rt - Patient Portal Instructions rt Prescriptions: - ondansetron 4 mg Oral Tablet,disintegrating - take 1 tablet by ORAL route every 6-8 hours for 5 days; 20 tablet; Refills: 0, sonam Product Selection Permitted Signatures: Dispatcher [employer] Eugene Clay MD MD cha Doucette, Kyli RN RN kd3 Sean Chacon MD MD rt Emma Pierre RN RN pf1 Delio Smith, RN RN dd1
--- NOTE | 2023-05-06 08:42 | RAD REPORT ---
EXAM DESCRIPTION: US - Abdomen Exam Limited - 05/06/2023 7:28 am CLINICAL HISTORY: ABD PAIN COMPARISON: Abdomen Exam Limited dated 10/29/2022 FINDINGS: The gallbladder demonstrates no gallstones. No pericholecystic fluid or gallbladder wall t hickening. The common bile duct is normal measuring 3 mm. The liver demonstrates no findings of intrahepatic biliary dilatation. IMPRESSION: Unremarkable examination.
[2023-05-06 09:08] VITALS: O2SAT 100
[2023-05-06 09:13] VITALS: BP 111/71; TEMP 98.5
--- NOTE | 2023-05-09 13:14 | EKG ---
Test Date: 2023-05-06 Test Time: 06:31:06 Lens Silverer: ELIOT MEASUREMENT RESULTS: Intervals: Rate: 86 VT: 130 QRSD: 74 QT: 352 QTc: 421 [place]: P: 73 VT: 130 QRS: 69 T: 45 INTERPRETIVE STATEMENTS: Normal sinus rhythm Normal ECG Compared to ECG 04/11/2019 08:27:46 No significant changes Electronically Signed On 05-09-23 13:09:38 CDT by Ervin Gonzalez
== END 2023-05-06 08:50 | disposition home or self-care (01) ==
LOC: ER 06:17
DX: K30 Functional dyspepsia (principal)
CPT/HCPCS: 96361; 93005; 85025; 80048; 36415; 83735; 85610; 85379; 80076; 84484; 83690; 83880; 80307; 71275; 71045; 76705; 96375; 96374; 99285; Q9967; J7030